=== PATIENT | male | born 1955 | race Caucasian/White ===

== ENCOUNTER 2017-07-12 13:44 | Emergency (ER) | payer MEDICAID ==
[~2017-07-12] VITALS: Ht 167.6 cm; Wt 73.3 kg
[~2017-07-12 13:44] MED LIST: ACET-1757 PO; ASPI-621 PO; ATOR-2 PO; CLOP75TA PO; GLYB1.252 PO; HYDR25TA6 PO; LISI-167 PO; LISI-170 PO; METF500T PO; METF500T4 PO; METO25TA35 PO; NITR0.4T28 SL; OMEP-110 PO; SPIR25TA PO
[2017-07-12] MEDS ORDERED: OXYcodone/APAP 10/325MG TABLET PO ONE (14:30)
[2017-07-12 14:34] LABS: HEMATOCRIT 41.4 % (39.2-51.8); HEMOGLOBIN 14.3 g/dL (13.7-18.0); WHITE BLOOD COUNT 7.2 x10^3/uL (3.4-10)
[2017-07-12] MEDS ORDERED: OXYcodone/APAP 10/325MG TABLET ONE (14:35)
[2017-07-12 14:47] LABS: BLOOD UREA NITROGEN 18 mg/dL (7-18)
[2017-07-12 14:52] LABS: ASPARTATE AMINO TRANSFERASE 18 U/L (15-37)
[2017-07-12] MEDS ORDERED: CLINDAMYCIN 150 MG/ML, 6ML IM ONE (15:30)
[2017-07-12 16:09] VITALS: BP 157/66
== END 2017-07-12 16:13 | disposition home or self-care (01) ==
LOC: ED 14:36
DX: L03.116 Cellulitis of left lower limb (principal); E11.65 Type 2 diabetes mellitus with hyperglycemia; I10 Essential (primary) hypertension; I25.2 Old myocardial infarction; F17.200 Nicotine dependence, unspecified, uncomplicated; Z95.811 Presence of heart assist device
CPT/HCPCS: 36415; 80053; 85025; 96372

== ENCOUNTER 2017-08-08 17:41 | Inpatient (IN) | payer MEDICAID ==
[~2017-08-08] VITALS: Ht 167.6 cm; Wt 85.7 kg
[2017-08-08] MEDS ORDERED: IBUP100T9 PO (18:37)
[2017-08-08] MEDS ORDERED: ONDANSETRON 2MG/ML, 2ML IVPush ONE (19:00)
[2017-08-08] MEDS ORDERED: SODIUM CHLORIDE 0.9% 1,000ML IVBOLUS ONE (19:00)
[2017-08-08] MEDS ORDERED: SODIUM CHLORIDE FLUSH 10ML SYR IVF ONE (19:00)
[2017-08-08] MEDS ORDERED: AMPICILLIN/SULBACTAM 3 GM in SODIUM CHLORIDE 0.9% 100 ML IV ONE (19:00)
[2017-08-08 19:14] LABS: HEMATOCRIT 40.4 % (39.2-51.8); HEMOGLOBIN 13.9 g/dL (13.7-18.0); WHITE BLOOD COUNT 10.3 x10^3/uL (3.4-10)
[2017-08-08] MEDS ORDERED: ONDANSETRON 2MG/ML, 2ML ONE (19:17)
[2017-08-08] MEDS ORDERED: MORPHINE SULFATE 4 MG/ML, 1ML ONE ×2 (19:17→20:22)
[2017-08-08 19:20] LABS: ASPARTATE AMINO TRANSFERASE 38 U/L (15-37); BLOOD UREA NITROGEN 20 mg/dL (7-18)
[2017-08-08] MEDS: MORPHINE SULFATE 4 MG/ML, 1ML IVPush PRN ×2 (19:25→20:25)
[2017-08-08] MEDS ORDERED: DOCUSATE 100 MG CAPSULE PO PRN (21:00)
[2017-08-08] MEDS ORDERED: ONDANSETRON 2MG/ML, 2ML IVPush PRN (21:00)
[2017-08-08] MEDS ORDERED: AMLODIPINE 5 MG TABLET PO ONE (21:00)
[2017-08-08] MEDS ORDERED: NITROGLYCERIN 0.4 MG BOTTLE (25 TABS) SL PRN (21:00)
[2017-08-08] MEDS ORDERED: ACETAMINOPHEN 325 MG TABLET PO PRN (21:00)
[2017-08-08] MEDS ORDERED: VANCOMYCIN PER PHARMACY MC PRN (21:00)
[2017-08-08] MEDS ORDERED: ONDANSETRON ODT 4 MG PO PRN (21:00)
[2017-08-08] MEDS ORDERED: HYDROcodone/APAP 5/325 TABLET PO PRN (21:00)
[2017-08-08] MEDS: LISINOPRIL 20 MG TABLET PO SCH ×2 (22:00→23:37)
[2017-08-08] MEDS ORDERED: VANCOMYCIN 1,400 MG in SODIUM CHLORIDE 0.9% 250 ML IV SCH (22:30)
[2017-08-08] MEDS ORDERED: PHARMACOKINETIC CONSULTATION MC ONE (22:30)
[2017-08-08] MEDS ORDERED: PHARMACOKINETIC MONITORING MC PRN (23:00)
[2017-08-08] MEDS: INSULIN ASPART 100 UNITS/ML, PEN SQ-INSULIN SCH (23:36)
[2017-08-08] MEDS: ATORVASTATIN 20 MG TABLET PO SCH (23:37)
[2017-08-08] MEDS: FAMOTIDINE 20 MG/2 ML IVPush SCH (23:37)
[2017-08-08] MEDS: NS + 20MEQ KCL 1,000 ML IV SCH (23:39)
[2017-08-08] MEDS: morphine SULFATE 10 MG/ML, 1ML IVPush PRN (23:57)
[2017-08-09 01:58] VITALS: BP 160/79
[2017-08-09] MEDS: AMPICILLIN/SULBACTAM 3 GM in SODIUM CHLORIDE 0.9% 100 ML IV SCH ×4 (02:19→19:46)
[2017-08-09] MEDS: ASPIRIN 325 MG TABLET EC PO SCH (06:00)
[2017-08-09 06:27] LABS: HEMATOCRIT 36.9 % (39.2-51.8); HEMOGLOBIN 12.6 g/dL (13.7-18.0); WHITE BLOOD COUNT 7.3 x10^3/uL (3.4-10)
[2017-08-09 06:45] LABS: ASPARTATE AMINO TRANSFERASE 37 U/L (15-37); BLOOD UREA NITROGEN 14 mg/dL (7-18)
[2017-08-09] MEDS: INSULIN ASPART 100 UNITS/ML, PEN SQ-INSULIN SCH ×4 (08:09→21:30)
[2017-08-09] MEDS: morphine SULFATE 10 MG/ML, 1ML IVPush PRN ×5 (08:11→21:30)
[2017-08-09] MEDS: FAMOTIDINE 20 MG/2 ML IVPush SCH ×2 (08:17→21:30)
[2017-08-09 08:30] VITALS: BP 184/80
[2017-08-09 10:20] VITALS: BP 162/78
[2017-08-09 14:36] VITALS: BP 198/83
[2017-08-09] MEDS: hydrALAzine 20 MG/ML, 1ML IVPush PRN (14:41)
[2017-08-09] MEDS: HEPARIN 5,000 UNITS/ML, 1ML SQ SCH ×2 (14:51→21:31)
[2017-08-09] MEDS: NS + 20MEQ KCL 1,000 ML IV SCH (15:17)
[2017-08-09 15:19] VITALS: BP 162/70
[2017-08-09] MEDS: VANCOMYCIN 1,400 MG in SODIUM CHLORIDE 0.9% 250 ML IV SCH (16:56)
[2017-08-09 19:25] VITALS: BP 175/80
[2017-08-09] MEDS: ATORVASTATIN 20 MG TABLET PO SCH (21:00)
[2017-08-10] VITALS (8 sets, daily range): BP systolic 149–202; BP diastolic 58–88
[2017-08-10] MEDS: AMPICILLIN/SULBACTAM 3 GM in SODIUM CHLORIDE 0.9% 100 ML IV SCH ×4 (01:28→20:03)
[2017-08-10 05:40] LABS: HEMATOCRIT 35.2 % (39.2-51.8); HEMOGLOBIN 12.3 g/dL (13.7-18.0); WHITE BLOOD COUNT 7.8 x10^3/uL (3.4-10)
[2017-08-10] MEDS: ASPIRIN 325 MG TABLET EC PO SCH (05:42)
[2017-08-10] MEDS: morphine SULFATE 10 MG/ML, 1ML IVPush PRN ×5 (05:42→21:54)
[2017-08-10] MEDS: HEPARIN 5,000 UNITS/ML, 1ML SQ SCH ×2 (05:42→16:00)
[2017-08-10 05:53] LABS: BLOOD UREA NITROGEN 11 mg/dL (7-18)
[2017-08-10] MEDS: NS + 20MEQ KCL 1,000 ML IV SCH (07:43)
[2017-08-10] MEDS: FAMOTIDINE 20 MG/2 ML IVPush SCH ×2 (07:44→20:03)
[2017-08-10] MEDS: INSULIN ASPART 100 UNITS/ML, PEN SQ-INSULIN SCH ×4 (07:48→20:16)
[2017-08-10] MEDS: LISINOPRIL 20 MG TABLET PO SCH (07:48)
[2017-08-10] MEDS: hydrALAzine 20 MG/ML, 1ML IVPush PRN ×2 (08:02→12:06)
[2017-08-10] MEDS: VANCOMYCIN 1,400 MG in SODIUM CHLORIDE 0.9% 250 ML IV SCH (11:41)
[2017-08-10] MEDS ORDERED: OMNIPAQUE 350 MG/ML, 100ML BOTTLE ONE (11:55)
[2017-08-10] MEDS: ATORVASTATIN 20 MG TABLET PO SCH (20:03)
[2017-08-11] MEDS: HEPARIN 5,000 UNITS/ML, 1ML SQ SCH ×2 (00:30→09:06)
[2017-08-11] MEDS: AMPICILLIN/SULBACTAM 3 GM in SODIUM CHLORIDE 0.9% 100 ML IV SCH ×3 (01:19→15:42)
[2017-08-11 01:45] VITALS: BP 139/58
[2017-08-11] MEDS: ASPIRIN 325 MG TABLET EC PO SCH (04:33)
[2017-08-11] MEDS: NS + 20MEQ KCL 1,000 ML IV SCH ×2 (05:03→17:50)
[2017-08-11] MEDS: VANCOMYCIN 1,400 MG in SODIUM CHLORIDE 0.9% 250 ML IV SCH ×2 (05:58→18:00)
[2017-08-11] MEDS: INSULIN ASPART 100 UNITS/ML, PEN SQ-INSULIN SCH ×4 (07:00→21:58)
[2017-08-11] MEDS: morphine SULFATE 10 MG/ML, 1ML IVPush PRN ×3 (07:06→13:33)
[2017-08-11 07:21] VITALS: BP 193/73
[2017-08-11] MEDS: LISINOPRIL 20 MG TABLET PO SCH (09:06)
[2017-08-11] MEDS: FAMOTIDINE 20 MG/2 ML IVPush SCH ×2 (09:06→23:34)
[2017-08-11 10:23] VITALS: BP 181/73
[2017-08-11] MEDS: ENALAPRILAT 1.25 MG/ML, 2ML IVPush PRN ×2 (10:31→13:33)
[2017-08-11 14:59] VITALS: BP 173/85
[2017-08-11] MEDS ORDERED: MIDAZOLAM 1 MG/ML, 2ML ONE (15:11)
[2017-08-11] MEDS ORDERED: FENTANYL PF 100 MCG/2ML ONE ×3 (15:11→19:53)
[2017-08-11] MEDS ORDERED: ROCURONIUM 10MG/ML,5ML ONE (15:13)
[2017-08-11] MEDS ORDERED: PROPOFOL 10 MG/ML, 20ML ONE (15:13)
[2017-08-11] MEDS ORDERED: PROTAMINE SULFATE 10 MG/ML, 5ML ONE (15:31)
[2017-08-11] MEDS ORDERED: HEPARIN 1,000 UNITS/ML, 10ML ONE ×2 (15:32→18:57)
[2017-08-11] MEDS ORDERED: LIDOCAINE/PF 1%, 30ML ONE (15:32)
[2017-08-11] MEDS ORDERED: BACITRACIN 50,000 UNIT ONE (15:32)
[2017-08-11] MEDS ORDERED: THROMBIN 5,000 UNIT VIAL TP ONE ×2 (15:32→16:12)
[2017-08-11] MEDS ORDERED: MEPERIDINE/PF 25MG/0.5ML IVPush PRN (16:00)
[2017-08-11] MEDS ORDERED: hydrALAzine 20 MG/ML, 1ML IV PRN (16:00)
[2017-08-11] MEDS ORDERED: OXYcodone 5 MG/5 ML ORAL.SOL UDC PO PRN (16:00)
[2017-08-11] MEDS ORDERED: HYDROmorphone 1 MG/ML, 1ML IV PRN (16:00)
[2017-08-11] MEDS ORDERED: LABETALOL 5MG/ML, 20ML IV PRN (16:00)
[2017-08-11] MEDS ORDERED: ACETAMINOPHEN 325 MG TABLET PO PRN ×2 (16:00→22:30)
[2017-08-11] MEDS ORDERED: PROMETHAZINE 25 MG/ML, 1ML IV PRN (16:00)
[2017-08-11] MEDS ORDERED: ONDANSETRON 2MG/ML, 2ML IVPush PRN (16:00)
[2017-08-11] MEDS ORDERED: PHENYLEPHRINE 10 MG/ML ONE ×2 (17:13)
[2017-08-11] MEDS ORDERED: GLYCOPYRROLATE 0.4 MG/2 ML, 2ML ONE ×2 (17:16→17:18)
[2017-08-11] MEDS ORDERED: NEOSTIGMINE 1 MG/ML, 10ML ONE (17:16)
[2017-08-11] MEDS ORDERED: EPHEDRINE 50 MG/ML, 1ML ONE (17:38)
[2017-08-11] MEDS ORDERED: VISIPAQUE 270 MG/ML, 50ML BOTTLE ONE (19:13)
[2017-08-11] MEDS ORDERED: OXYcodone 5 MG/5 ML ORAL.SOL UDC ONE (19:53)
[2017-08-11] MEDS ORDERED: MEPERIDINE/PF 25MG/0.5ML ONE (19:53)
[2017-08-11] MEDS: FENTANYL PF 100 MCG/2ML IV PRN ×2 (20:30→20:45)
[2017-08-11 21:37] VITALS: BP 181/89
[2017-08-11] MEDS ORDERED: ONDANSETRON 2MG/ML, 2ML IV PRN (22:30)
[2017-08-11] MEDS ORDERED: LACTATED RINGERS 1,000 ML IV SCH (22:30)
[2017-08-11] MEDS: ATORVASTATIN 20 MG TABLET PO SCH (23:34)
[2017-08-11] MEDS: hydrALAzine 20 MG/ML, 1ML IVPush PRN (23:35)
[2017-08-11 23:41] VITALS: BP 178/83
[2017-08-11] MEDS: ENOXAPARIN 40 MG/0.4 ML SQ SCH (23:51)
[2017-08-12] MEDS: AMPICILLIN/SULBACTAM 3 GM in SODIUM CHLORIDE 0.9% 100 ML IV SCH ×4 (00:34→18:26)
[2017-08-12 03:57] VITALS: BP 148/70
[2017-08-12] MEDS: ASPIRIN 325 MG TABLET EC PO SCH (06:20)
[2017-08-12 07:15] VITALS: BP 158/85
[2017-08-12] MEDS: VANCOMYCIN 1,400 MG in SODIUM CHLORIDE 0.9% 250 ML IV SCH ×2 (07:23→19:43)
[2017-08-12] MEDS: FAMOTIDINE 20 MG/2 ML IVPush SCH ×2 (08:34→21:49)
[2017-08-12] MEDS: SODIUM CHLORIDE FLUSH 10ML SYR IVF SCH ×2 (08:34→21:50)
[2017-08-12] MEDS: INSULIN ASPART 100 UNITS/ML, PEN SQ-INSULIN SCH ×4 (08:34→22:07)
[2017-08-12] MEDS: LISINOPRIL 20 MG TABLET PO SCH (08:34)
[2017-08-12] MEDS ORDERED: PHENOL THROAT SPRAY BOTTLE MM PRN (09:00)
[2017-08-12 09:37] LABS: HEMATOCRIT 36.1 % (39.2-51.8); HEMOGLOBIN 12.4 g/dL (13.7-18.0); WHITE BLOOD COUNT 9.2 x10^3/uL (3.4-10)
[2017-08-12] MEDS: AMLODIPINE 2.5 MG TABLET PO SCH ×2 (12:33→21:49)
[2017-08-12 14:00] VITALS: BP 167/77
[2017-08-12] MEDS: morphine SULFATE 10 MG/ML, 1ML IV PRN ×2 (16:01→21:49)
[2017-08-12 20:37] VITALS: BP 164/79
[2017-08-12] MEDS: ATORVASTATIN 20 MG TABLET PO SCH (21:49)
[2017-08-12] MEDS: ENOXAPARIN 40 MG/0.4 ML SQ SCH (23:30)
[2017-08-13] MEDS: AMPICILLIN/SULBACTAM 3 GM in SODIUM CHLORIDE 0.9% 100 ML IV SCH ×4 (00:13→18:45)
[2017-08-13] MEDS: TEMAZEPAM 15 MG CAPSULE PO PRN ×2 (01:25→20:44)
[2017-08-13 03:51] VITALS: BP 165/89
[2017-08-13] MEDS: ASPIRIN 325 MG TABLET EC PO SCH (06:05)
[2017-08-13 06:12] LABS: HEMATOCRIT 30.6 % (39.2-51.8); HEMOGLOBIN 10.6 g/dL (13.7-18.0); WHITE BLOOD COUNT 8.8 x10^3/uL (3.4-10)
[2017-08-13] MEDS: INSULIN ASPART 100 UNITS/ML, PEN SQ-INSULIN SCH ×4 (06:13→21:06)
[2017-08-13 06:16] LABS: BLOOD UREA NITROGEN 12 mg/dL (7-18)
[2017-08-13] MEDS: VANCOMYCIN 1,400 MG in SODIUM CHLORIDE 0.9% 250 ML IV SCH ×2 (07:57→19:36)
[2017-08-13] MEDS: AMLODIPINE 2.5 MG TABLET PO SCH (07:58)
[2017-08-13] MEDS: LISINOPRIL 20 MG TABLET PO SCH (07:58)
[2017-08-13] MEDS: SODIUM CHLORIDE FLUSH 10ML SYR IVF SCH ×2 (07:58→20:57)
[2017-08-13 08:10] VITALS: BP 161/67
[2017-08-13] MEDS: FAMOTIDINE 20 MG/2 ML IVPush SCH (08:10)
[2017-08-13] MEDS ORDERED: ACETAMINOPHEN 325 MG TABLET PO PRN (11:00)
[2017-08-13] MEDS: HYDROmorphone 1 MG/ML, 1ML IV PRN ×3 (12:41→20:34)
[2017-08-13 13:50] VITALS: BP 177/82
[2017-08-13 18:54] VITALS: BP 183/85
[2017-08-13] MEDS: hydrALAzine 20 MG/ML, 1ML IVPush PRN (19:28)
[2017-08-13 20:36] VITALS: BP 169/76
[2017-08-13] MEDS: ATORVASTATIN 20 MG TABLET PO SCH (20:56)
[2017-08-13] MEDS: AMLODIPINE 5 MG TABLET PO SCH (20:57)
[2017-08-14] MEDS: ENOXAPARIN 40 MG/0.4 ML SQ SCH (00:11)
[2017-08-14] MEDS: AMPICILLIN/SULBACTAM 3 GM in SODIUM CHLORIDE 0.9% 100 ML IV SCH ×5 (00:14→20:01)
[2017-08-14 00:49] VITALS: BP 145/72
[2017-08-14] MEDS: HYDROmorphone 1 MG/ML, 1ML IV PRN ×6 (01:04→20:31)
[2017-08-14] MEDS: ASPIRIN 325 MG TABLET EC PO SCH (05:23)
[2017-08-14] MEDS: POLYETHYLENE GLYCOL 17 GM PACKET PO PRN (05:26)
[2017-08-14] MEDS: INSULIN ASPART 100 UNITS/ML, PEN SQ-INSULIN SCH ×4 (06:27→20:50)
[2017-08-14 07:11] VITALS: BP 176/83
[2017-08-14] MEDS: VANCOMYCIN 1,400 MG in SODIUM CHLORIDE 0.9% 250 ML IV SCH ×2 (07:42→20:38)
[2017-08-14] MEDS: ENALAPRILAT 1.25 MG/ML, 2ML IVPush PRN (07:48)
[2017-08-14 08:55] LABS: HEMOGLOBIN 11.6 g/dL (13.7-18.0)
[2017-08-14 09:01] LABS: BLOOD UREA NITROGEN 12 mg/dL (7-18)
[2017-08-14] MEDS: LISINOPRIL 20 MG TABLET PO SCH (09:23)
[2017-08-14] MEDS: SODIUM CHLORIDE FLUSH 10ML SYR IVF SCH ×2 (09:23→20:31)
[2017-08-14] MEDS: AMLODIPINE 5 MG TABLET PO SCH ×2 (09:23→20:31)
[2017-08-14 09:24] VITALS: BP 182/75
[2017-08-14] MEDS: hydrALAzine 20 MG/ML, 1ML IVPush PRN ×2 (09:32→18:45)
[2017-08-14 13:46] VITALS: BP 167/85
[2017-08-14] MEDS: OXYcodone/APAP 7.5/325MG TABLET PO PRN ×2 (16:10→21:15)
[2017-08-14] MEDS: metFORMIN 500 MG TABLET PO SCH (17:44)
[2017-08-14] MEDS: ATORVASTATIN 20 MG TABLET PO SCH (20:31)
[2017-08-14 21:17] VITALS: BP 156/83
[2017-08-14] MEDS: TEMAZEPAM 15 MG CAPSULE PO PRN (22:35)
[2017-08-15 00:26] VITALS: BP 143/64
[2017-08-15] MEDS: HYDROmorphone 1 MG/ML, 1ML IV PRN ×5 (00:45→18:43)
[2017-08-15] MEDS: ENOXAPARIN 40 MG/0.4 ML SQ SCH ×2 (00:50→23:28)
[2017-08-15] MEDS: AMPICILLIN/SULBACTAM 3 GM in SODIUM CHLORIDE 0.9% 100 ML IV SCH ×4 (02:10→19:39)
[2017-08-15] MEDS: OXYcodone/APAP 7.5/325MG TABLET PO PRN ×5 (02:12→20:39)
[2017-08-15 05:10] LABS: HEMATOCRIT 32.4 % (39.2-51.8); HEMOGLOBIN 11.1 g/dL (13.7-18.0); WHITE BLOOD COUNT 6.8 x10^3/uL (3.4-10)
[2017-08-15 05:11] LABS: BLOOD UREA NITROGEN 13 mg/dL (7-18)
[2017-08-15] MEDS: METOPROLOL SUCCINATE 25 MG TAB.ER.24H PO SCH (05:26)
[2017-08-15] MEDS: ASPIRIN 325 MG TABLET EC PO SCH (05:26)
[2017-08-15] MEDS: POLYETHYLENE GLYCOL 17 GM PACKET PO PRN (05:38)
[2017-08-15 07:25] VITALS: BP 183/80
[2017-08-15] MEDS: VANCOMYCIN 1,400 MG in SODIUM CHLORIDE 0.9% 250 ML IV SCH ×2 (07:56→20:37)
[2017-08-15] MEDS: LISINOPRIL 20 MG TABLET PO SCH (07:57)
[2017-08-15] MEDS: INSULIN ASPART 100 UNITS/ML, PEN SQ-INSULIN SCH ×4 (07:57→21:01)
[2017-08-15] MEDS: SODIUM CHLORIDE FLUSH 10ML SYR IVF SCH ×2 (07:58→20:40)
[2017-08-15] MEDS: metFORMIN 500 MG TABLET PO SCH ×2 (07:58→16:44)
[2017-08-15] MEDS: AMLODIPINE 5 MG TABLET PO SCH ×2 (07:58→20:39)
[2017-08-15 14:06] VITALS: BP 165/89
[2017-08-15 18:53] VITALS: BP 170/80
[2017-08-15] MEDS ORDERED: ACETAMINOPHEN 325 MG TABLET PO PRN ×2 (20:30)
[2017-08-15] MEDS ORDERED: ONDANSETRON ODT 4 MG PO PRN (20:30)
[2017-08-15] MEDS ORDERED: PHARMACOKINETIC MONITORING MC PRN (20:30)
[2017-08-15] MEDS ORDERED: ONDANSETRON 2MG/ML, 2ML IV PRN (20:30)
[2017-08-15] MEDS ORDERED: VANCOMYCIN PER PHARMACY MC PRN (20:30)
[2017-08-15] MEDS ORDERED: NITROGLYCERIN 0.4 MG BOTTLE (25 TABS) SL PRN (20:30)
[2017-08-15] MEDS: ATORVASTATIN 20 MG TABLET PO SCH (20:39)
[2017-08-15] MEDS: DOCUSATE 100 MG CAPSULE PO PRN (21:00)
[2017-08-16] MEDS: OXYcodone/APAP 7.5/325MG TABLET PO PRN ×5 (00:54→21:07)
[2017-08-16] MEDS: TEMAZEPAM 15 MG CAPSULE PO PRN ×2 (01:43→21:21)
[2017-08-16] MEDS: AMPICILLIN/SULBACTAM 3 GM in SODIUM CHLORIDE 0.9% 100 ML IV SCH ×4 (01:45→21:08)
[2017-08-16 01:51] VITALS: BP 141/74
[2017-08-16] MEDS: ASPIRIN 325 MG TABLET EC PO SCH (06:32)
[2017-08-16] MEDS: METOPROLOL SUCCINATE 25 MG TAB.ER.24H PO SCH (06:32)
[2017-08-16 07:25] VITALS: BP 168/82
[2017-08-16] MEDS: VANCOMYCIN 1,400 MG in SODIUM CHLORIDE 0.9% 250 ML IV SCH ×2 (08:30→19:34)
[2017-08-16] MEDS: LISINOPRIL 20 MG TABLET PO SCH (08:31)
[2017-08-16] MEDS: metFORMIN 500 MG TABLET PO SCH ×2 (08:31→16:01)
[2017-08-16] MEDS: AMLODIPINE 5 MG TABLET PO SCH ×2 (08:31→21:07)
[2017-08-16] MEDS: INSULIN ASPART 100 UNITS/ML, PEN SQ-INSULIN SCH ×4 (08:31→21:21)
[2017-08-16] MEDS: SODIUM CHLORIDE FLUSH 10ML SYR IVF SCH ×2 (10:10→21:00)
[2017-08-16 14:11] VITALS: BP 154/76
[2017-08-16 19:52] VITALS: BP 177/74
[2017-08-16] MEDS: ATORVASTATIN 20 MG TABLET PO SCH (21:07)
[2017-08-16] MEDS: ENOXAPARIN 40 MG/0.4 ML SQ SCH (21:07)
[2017-08-17] MEDS: HYDROmorphone 1 MG/ML, 1ML IV PRN ×2 (00:18→13:13)
[2017-08-17 00:24] VITALS: BP 163/71
[2017-08-17] MEDS: AMPICILLIN/SULBACTAM 3 GM in SODIUM CHLORIDE 0.9% 100 ML IV SCH ×3 (03:03→16:46)
[2017-08-17] MEDS: OXYcodone/APAP 7.5/325MG TABLET PO PRN ×5 (03:03→22:15)
[2017-08-17] MEDS: METOPROLOL SUCCINATE 25 MG TAB.ER.24H PO SCH (06:04)
[2017-08-17] MEDS: ASPIRIN 325 MG TABLET EC PO SCH (06:04)
[2017-08-17 06:05] LABS: HEMATOCRIT 28.7 % (39.2-51.8); HEMOGLOBIN 9.9 g/dL (13.7-18.0); WHITE BLOOD COUNT 7.4 x10^3/uL (3.4-10)
[2017-08-17] MEDS: INSULIN ASPART 100 UNITS/ML, PEN SQ-INSULIN SCH ×4 (06:06→20:35)
[2017-08-17 06:13] LABS: BLOOD UREA NITROGEN 14 mg/dL (7-18)
[2017-08-17] MEDS: VANCOMYCIN 1,400 MG in SODIUM CHLORIDE 0.9% 250 ML IV SCH (07:34)
[2017-08-17] MEDS: metFORMIN 500 MG TABLET PO SCH ×2 (07:34→16:46)
[2017-08-17 08:26] VITALS: BP 171/73
[2017-08-17] MEDS: SODIUM CHLORIDE FLUSH 10ML SYR IVF SCH ×2 (09:00→20:05)
[2017-08-17 11:52] VITALS: BP 183/74
[2017-08-17] MEDS: AMLODIPINE 5 MG TABLET PO SCH ×2 (11:56→20:07)
[2017-08-17] MEDS: LISINOPRIL 20 MG TABLET PO SCH (11:57)
[2017-08-17 13:56] VITALS: BP 162/80
[2017-08-17] MEDS: METOPROLOL TARTRATE 25 MG TABLET PO SCH (18:00)
[2017-08-17 20:00] VITALS: BP 147/68
[2017-08-17] MEDS: ATORVASTATIN 20 MG TABLET PO SCH (20:07)
[2017-08-17] MEDS: DOCUSATE 100 MG CAPSULE PO PRN (20:19)
[2017-08-17] MEDS: VANCOMYCIN 1,100 MG in SODIUM CHLORIDE 0.9% 250 ML IV SCH (20:19)
[2017-08-17] MEDS: ENOXAPARIN 40 MG/0.4 ML SQ SCH (22:15)
[2017-08-17] MEDS: TEMAZEPAM 15 MG CAPSULE PO PRN (22:19)
[2017-08-18] MEDS: AMPICILLIN/SULBACTAM 3 GM in SODIUM CHLORIDE 0.9% 100 ML IV SCH ×3 (00:50→12:20)
[2017-08-18] MEDS: OXYcodone/APAP 7.5/325MG TABLET PO PRN ×4 (02:40→16:18)
[2017-08-18 03:11] VITALS: BP 145/72
[2017-08-18] MEDS: METOPROLOL TARTRATE 25 MG TABLET PO SCH (06:00)
[2017-08-18] MEDS: ASPIRIN 325 MG TABLET EC PO SCH (06:53)
[2017-08-18 08:07] VITALS: BP 171/70
[2017-08-18] MEDS: INSULIN ASPART 100 UNITS/ML, PEN SQ-INSULIN SCH ×3 (08:26→16:56)
[2017-08-18] MEDS: LISINOPRIL 20 MG TABLET PO SCH (08:26)
[2017-08-18] MEDS: metFORMIN 500 MG TABLET PO SCH (08:26)
[2017-08-18] MEDS: AMLODIPINE 5 MG TABLET PO SCH (08:26)
[2017-08-18] MEDS: VANCOMYCIN 1,100 MG in SODIUM CHLORIDE 0.9% 250 ML IV SCH (08:27)
[2017-08-18] MEDS: SODIUM CHLORIDE FLUSH 10ML SYR IVF SCH (08:28)
[2017-08-18] MEDS ORDERED: ATOR20TA9 PO (13:03)
[2017-08-18] MEDS ORDERED: AMLO5TAB2 PO (13:03)
[2017-08-18] MEDS ORDERED: SULF1TAB24 PO ×2 (13:03→13:42)
[2017-08-18] MEDS ORDERED: OXYC1TAB8 PO ×2 (13:03→13:42)
[2017-08-18] MEDS ORDERED: METO25TA35 PO (13:03)
[2017-08-18] MEDS ORDERED: LISI-170 PO (13:45)
[2017-08-18 14:45] VITALS: BP 169/73
[2017-08-19] MEDS ORDERED: ASPIRIN 325 MG TABLET EC PO SCH (06:00)
== END 2017-08-18 17:19 | disposition home health service (06) | DRG 253 ==
LOC: ED 20:13 → EDIP 20:51 → 3NE 21:30 → 4NOR 08-11 18:08
PROVIDERS: ADMIT Internal Medicine; ATTEND Internal Medicine
PROC: 06BQ3ZZ Excision of Left Saphenous Vein, Percutaneous Approach (ICD-10-PCS; 2017-08-11)
PROC: 04CL0ZZ Extirpation of Matter from Left Femoral Artery, Open Approach (ICD-10-PCS; 2017-08-11)
PROC: B41G1ZZ Fluoroscopy of Left Lower Extremity Arteries using Low Osmolar Contrast (ICD-10-PCS; 2017-08-11)
PROC: 0Y6Y0Z0 Detachment at Left 5th Toe, Complete, Open Approach (ICD-10-PCS; principal; 2017-08-11 16:30)
PROC: 041L09N Bypass Left Femoral Artery to Posterior Tibial Artery with Autologous Venous Tissue, Open Approach (ICD-10-PCS; 2017-08-11 16:30)
DX: E11.52 Type 2 diabetes mellitus with diabetic peripheral angiopathy with gangrene (principal); E44.0 Moderate protein-calorie malnutrition; I11.9 Hypertensive heart disease without heart failure; E11.65 Type 2 diabetes mellitus with hyperglycemia; L03.116 Cellulitis of left lower limb; E78.5 Hyperlipidemia, unspecified; F17.210 Nicotine dependence, cigarettes, uncomplicated; I25.10 Atherosclerotic heart disease of native coronary artery without angina pectoris; Z91.14 Patient's other noncompliance with medication regimen; Z91.19 Patient's noncompliance with other medical treatment and regimen; Z95.5 Presence of coronary angioplasty implant and graft; I77.9 Disorder of arteries and arterioles, unspecified
CPT/HCPCS: 36415; 75635; 75710; 80048; 80053; 80202; 82040; 82962; 83036; 83605; 84145; 85025; 85651; 87040; 93005; 93922; 93925; 93970; 96365; 96375; 96376; C1729; J0295; J1170; J1644; J1650; J1815; J2175; J2250; J2270; J2405; J2704; J2710; J2720; J3010; J3370; J3480; J3490; Q9966; Q9967; J0360; J2370; J7030; J7050; S0028

== ENCOUNTER → 2017-08-20 | Outpatient (CLI) | payer MEDICAID ==
[~2017-08-20] MED LIST changes: +AMLO5TAB2 PO; +ATOR20TA9 PO; +IBUP100T9 PO; +OXYC1TAB8 PO; +SULF1TAB24 PO
== END | disposition home or self-care (01) ==
LOC: WOUND 13:16
PROVIDERS: ATTEND Internal Medicine Cardiovascular Disease
DX: E11.621 Type 2 diabetes mellitus with foot ulcer (principal); L97.521 Non-pressure chronic ulcer of other part of left foot limited to breakdown of skin; I25.10 Atherosclerotic heart disease of native coronary artery without angina pectoris; E78.5 Hyperlipidemia, unspecified; I11.9 Hypertensive heart disease without heart failure; F17.210 Nicotine dependence, cigarettes, uncomplicated; E11.52 Type 2 diabetes mellitus with diabetic peripheral angiopathy with gangrene; I25.2 Old myocardial infarction
CPT/HCPCS: 97605

== ENCOUNTER → 2017-08-21 | Outpatient (CLI) | payer MEDICAID | END | disposition home or self-care (01) | LOC: WOUND 14:16 | PROVIDERS: ATTEND Physician Assistant | DX: T81.31XD Disruption of external operation (surgical) wound, not elsewhere classified, subsequent encounter (principal); E11.621 Type 2 diabetes mellitus with foot ulcer; L97.521 Non-pressure chronic ulcer of other part of left foot limited to breakdown of skin; E78.5 Hyperlipidemia, unspecified; I11.9 Hypertensive heart disease without heart failure; I25.2 Old myocardial infarction; E11.52 Type 2 diabetes mellitus with diabetic peripheral angiopathy with gangrene; F17.210 Nicotine dependence, cigarettes, uncomplicated; Y83.8 Other surgical procedures as the cause of abnormal reaction of the patient, or of later complication, without mention of misadventure at the time of the procedure | CPT/HCPCS: 11043; 97605; 99215 ==

== ENCOUNTER → 2017-08-24 | Outpatient (CLI) | payer MEDICAID | END | disposition home or self-care (01) | LOC: WOUND 13:15 | PROVIDERS: ATTEND Internal Medicine | DX: T81.31XD Disruption of external operation (surgical) wound, not elsewhere classified, subsequent encounter (principal); E11.621 Type 2 diabetes mellitus with foot ulcer; L97.521 Non-pressure chronic ulcer of other part of left foot limited to breakdown of skin; E78.5 Hyperlipidemia, unspecified; I11.9 Hypertensive heart disease without heart failure; E11.52 Type 2 diabetes mellitus with diabetic peripheral angiopathy with gangrene; F17.210 Nicotine dependence, cigarettes, uncomplicated; I25.2 Old myocardial infarction; Y83.8 Other surgical procedures as the cause of abnormal reaction of the patient, or of later complication, without mention of misadventure at the time of the procedure | CPT/HCPCS: 97605 ==

== ENCOUNTER → 2017-08-26 | Outpatient (CLI) | payer MEDICAID | END | disposition home or self-care (01) | LOC: WOUND 14:44 | PROVIDERS: ATTEND Family Medicine | DX: T87.89 Other complications of amputation stump (principal); E11.621 Type 2 diabetes mellitus with foot ulcer; L97.521 Non-pressure chronic ulcer of other part of left foot limited to breakdown of skin; I10 Essential (primary) hypertension; E78.5 Hyperlipidemia, unspecified; I25.10 Atherosclerotic heart disease of native coronary artery without angina pectoris; Z87.891 Personal history of nicotine dependence; Y83.5 Amputation of limb(s) as the cause of abnormal reaction of the patient, or of later complication, without mention of misadventure at the time of the procedure | CPT/HCPCS: 11042 ==

== ENCOUNTER → 2017-09-14 | Outpatient (CLI) | payer MEDICAID | END | disposition home or self-care (01) | LOC: WOUND 13:06 | PROVIDERS: ATTEND Internal Medicine | DX: T81.31XD Disruption of external operation (surgical) wound, not elsewhere classified, subsequent encounter (principal); E11.621 Type 2 diabetes mellitus with foot ulcer; L97.521 Non-pressure chronic ulcer of other part of left foot limited to breakdown of skin; I25.10 Atherosclerotic heart disease of native coronary artery without angina pectoris; I10 Essential (primary) hypertension; E78.5 Hyperlipidemia, unspecified; I25.2 Old myocardial infarction; E11.52 Type 2 diabetes mellitus with diabetic peripheral angiopathy with gangrene; Z95.1 Presence of aortocoronary bypass graft; F17.210 Nicotine dependence, cigarettes, uncomplicated; Y83.8 Other surgical procedures as the cause of abnormal reaction of the patient, or of later complication, without mention of misadventure at the time of the procedure | CPT/HCPCS: 11042 ==

== ENCOUNTER → 2017-09-21 | Outpatient (CLI) | payer MEDICAID | END | disposition home or self-care (01) | LOC: WOUND 13:16 | PROVIDERS: ATTEND Internal Medicine | DX: T81.31XD Disruption of external operation (surgical) wound, not elsewhere classified, subsequent encounter (principal); E11.621 Type 2 diabetes mellitus with foot ulcer; L97.521 Non-pressure chronic ulcer of other part of left foot limited to breakdown of skin; I25.10 Atherosclerotic heart disease of native coronary artery without angina pectoris; I10 Essential (primary) hypertension; E78.5 Hyperlipidemia, unspecified; F17.210 Nicotine dependence, cigarettes, uncomplicated; I25.2 Old myocardial infarction; E11.52 Type 2 diabetes mellitus with diabetic peripheral angiopathy with gangrene; Y83.8 Other surgical procedures as the cause of abnormal reaction of the patient, or of later complication, without mention of misadventure at the time of the procedure | CPT/HCPCS: 15275; Q4106 ==

== ENCOUNTER → 2017-09-28 | Outpatient (CLI) | payer MEDICAID | END | disposition home or self-care (01) | LOC: WOUND 13:04 | PROVIDERS: ATTEND Family Medicine | DX: T81.31XD Disruption of external operation (surgical) wound, not elsewhere classified, subsequent encounter (principal); E11.621 Type 2 diabetes mellitus with foot ulcer; L97.521 Non-pressure chronic ulcer of other part of left foot limited to breakdown of skin; E11.52 Type 2 diabetes mellitus with diabetic peripheral angiopathy with gangrene; I11.0 Hypertensive heart disease with heart failure; I25.10 Atherosclerotic heart disease of native coronary artery without angina pectoris; E78.5 Hyperlipidemia, unspecified; I25.2 Old myocardial infarction; E44.0 Moderate protein-calorie malnutrition; F17.210 Nicotine dependence, cigarettes, uncomplicated; Z98.61 Coronary angioplasty status; Z89.9 Acquired absence of limb, unspecified; Z95.1 Presence of aortocoronary bypass graft; Y83.8 Other surgical procedures as the cause of abnormal reaction of the patient, or of later complication, without mention of misadventure at the time of the procedure | CPT/HCPCS: 15275; Q4106 ==

== ENCOUNTER → 2017-10-05 | Outpatient (CLI) | payer MEDICAID | END | disposition home or self-care (01) | LOC: WOUND 13:19 | PROVIDERS: ATTEND Family Medicine | DX: E11.621 Type 2 diabetes mellitus with foot ulcer (principal); L97.521 Non-pressure chronic ulcer of other part of left foot limited to breakdown of skin; I25.10 Atherosclerotic heart disease of native coronary artery without angina pectoris; E78.5 Hyperlipidemia, unspecified; I11.9 Hypertensive heart disease without heart failure; E11.52 Type 2 diabetes mellitus with diabetic peripheral angiopathy with gangrene; I25.2 Old myocardial infarction; F17.210 Nicotine dependence, cigarettes, uncomplicated; Z98.61 Coronary angioplasty status; Z95.1 Presence of aortocoronary bypass graft | CPT/HCPCS: 15275; Q4106 ==

== ENCOUNTER → 2017-10-19 | Outpatient (CLI) | payer MEDICAID | END | disposition home or self-care (01) | LOC: WOUND 13:04 | PROVIDERS: ATTEND Internal Medicine | DX: T87.89 Other complications of amputation stump (principal); E11.621 Type 2 diabetes mellitus with foot ulcer; L97.521 Non-pressure chronic ulcer of other part of left foot limited to breakdown of skin; I25.10 Atherosclerotic heart disease of native coronary artery without angina pectoris; E78.5 Hyperlipidemia, unspecified; I11.9 Hypertensive heart disease without heart failure; I25.2 Old myocardial infarction; E11.52 Type 2 diabetes mellitus with diabetic peripheral angiopathy with gangrene; F17.210 Nicotine dependence, cigarettes, uncomplicated; Z95.1 Presence of aortocoronary bypass graft; Z98.61 Coronary angioplasty status; Y83.5 Amputation of limb(s) as the cause of abnormal reaction of the patient, or of later complication, without mention of misadventure at the time of the procedure | CPT/HCPCS: 15275; Q4106 ==

== ENCOUNTER 2020-02-02 17:31 | Inpatient (IN) | payer MEDICAID ==
[~2020-02-02] VITALS: Ht 167.6 cm; Wt 68.6 kg
[~2020-02-02 17:31] MED LIST changes: -ACET-1757 PO; +ACET-2065 PO; +AMLO-150 PO; -AMLO5TAB2 PO; -ASPI-621 PO; +ASPI81TA45 PO; +ATOR20TA37 PO; -ATOR20TA9 PO; +METF500T17 PO; -METF500T4 PO
[2020-02-02] MEDS ORDERED: ASPIRIN 81 MG TABLET CHEW PO ONE (18:00)
[2020-02-02] MEDS ORDERED: ASPIRIN 81 MG TABLET CHEW ONE (18:00)
[2020-02-02] MEDS ORDERED: SODIUM CHLORIDE FLUSH 10ML SYR IVF ONE (18:00)
[2020-02-02] MEDS: NITROGLYCERIN SINGLE TAB 0.4 MG SL PRN ×3 (18:07→18:23)
--- NOTE | 2020-02-02 18:11 | NUR ---
post nitro x1 cp from 06/11 to 710
[2020-02-02 18:23] LABS: BASOPHILS # (AUTO) 0.07 x10^3/uL (0-0.1); BASOPHILS % (AUTO) 1 % (0-1); EOSINOPHILS # (AUTO) 0.22 x10^3/uL (0-0.4); EOSINOPHILS % (AUTO) 2 % (1-7); LYMPHOCYTES # (AUTO) 0.95 x10^3/uL (1-3.4); LYMPHOCYTES % (AUTO) 9 % (22-44); MD NO; MEAN CORPUSCULAR HGB CONC 33.9 g/dL (33.2-36.2); MEAN CORPUSCULAR VOLUME 94.5 fL (81-97); MEAN PLATELET VOLUME 9.2 fL (7.4-10.4); MONOCYTES # (AUTO) 0.84 x10^3/uL (0.2-0.8); MONOCYTES % (AUTO) 8 % (2-9); NEUTROPHILS % (AUTO) 80 % (42-75); PLATELET COUNT 180 x10^3/uL (130-400); RED BLOOD COUNT 4.03 x10^6/uL (4.38-5.82); RED CELL DISTRIBUTION WIDTH 13.6 % (9.4-14.8)
--- NOTE | 2020-02-02 18:24 | NUR ---
nitro x 2 pain 05/11 to 05/11 no changes. md made aware. third nitro to be admin.
[2020-02-02] MEDS ORDERED: ONDANSETRON 2MG/ML, 2ML IVPush ONE (18:30)
[2020-02-02 18:33] LABS: ALBUMIN 2.4 g/dL (3.4-5.0); ANION GAP 6 mmol/L (5-15); CALCIUM 8.7 mg/dL (8.5-10.1); CHLORIDE 112 mmol/L (98-107); CREATININE 1.19 mg/dL (0.7-1.3)
[2020-02-02] MEDS ORDERED: ONDANSETRON 2MG/ML, 2ML ONE (18:33)
[2020-02-02] MEDS ORDERED: MORPHINE SULFATE 4 MG/ML, 1ML ONE ×2 (18:33→18:58)
[2020-02-02 18:39] LABS: TROPONIN I 0.214 ng/mL (0.000-0.045)
[2020-02-02] MEDS: MORPHINE SULFATE 4 MG/ML, 1ML IVPush PRN ×2 (18:42→19:00)
[2020-02-02] MEDS ORDERED: SODIUM CHLORIDE FLUSH 10ML SYR IVF PRN (19:00)
--- NOTE | 2020-02-02 19:30 | NUR ---
TP RN: PER [facility] AND [facility], NO COVID TESTING PRIOR TO ADMIT
[2020-02-02 20:25] VITALS: BP 195/85
[2020-02-02 21:02] VITALS: BP 184/89
[2020-02-02] MEDS: AMLODIPINE 5 MG TABLET PO SCH (21:03)
[2020-02-02] MEDS: METOPROLOL TARTRATE 25 MG TAB PO SCH (21:03)
[2020-02-02] MEDS: NITROGLYCERIN OINT 2%, 1GM TP SCH (21:03)
[2020-02-02] MEDS: ATORVASTATIN 80 MG TABLET PO SCH (21:03)
[2020-02-02 22:05] VITALS: BP 159/65
[2020-02-02 23:20] LABS: TROPONIN I 0.922 ng/mL (0.000-0.045)
[2020-02-02] MEDS ORDERED: ONDANSETRON 2MG/ML, 2ML IVPush PRN (23:30)
[2020-02-02] MEDS ORDERED: GABAPENTIN 300 MG CAPSULE PO PRN (23:30)
[2020-02-02] MEDS: morphine SULFATE 10 MG/ML, 1ML IV PRN (23:32)
[2020-02-03] MEDS ORDERED: HEPARIN 5,000 UNITS/ML, 1ML IV ONE (00:30)
[2020-02-03] MEDS: HEPARIN 25,000 UNITS/250ML PMX 250 ML IV PRN (00:38)
[2020-02-03 01:26] VITALS: BP 162/66
[2020-02-03 03:19] VITALS: BP 147/78
[2020-02-03] MEDS: NITROGLYCERIN OINT 2%, 1GM TP SCH ×4 (03:21→20:14)
[2020-02-03 05:29] LABS: BASOPHILS # (AUTO) 0.07 x10^3/uL (0-0.1); BASOPHILS % (AUTO) 1 % (0-1); EOSINOPHILS # (AUTO) 0.16 x10^3/uL (0-0.4); EOSINOPHILS % (AUTO) 2 % (1-7); LYMPHOCYTES # (AUTO) 1.05 x10^3/uL (1-3.4); LYMPHOCYTES % (AUTO) 13 % (22-44); MD NO; MEAN CORPUSCULAR HGB CONC 33.5 g/dL (33.2-36.2); MEAN CORPUSCULAR VOLUME 95.5 fL (81-97); MEAN PLATELET VOLUME 9.8 fL (7.4-10.4); MONOCYTES % (AUTO) 9 % (2-9); NEUTROPHILS # (AUTO) 5.91 x10^3/uL (1.8-6.8); NEUTROPHILS % (AUTO) 75 % (42-75); PLATELET COUNT 144 x10^3/uL (130-400); RED BLOOD COUNT 3.63 x10^6/uL (4.38-5.82); RED CELL DISTRIBUTION WIDTH 13.3 % (9.4-14.8)
[2020-02-03 05:36] LABS: ANION GAP 5 mmol/L (5-15); CALCIUM 8.2 mg/dL (8.5-10.1); CHLORIDE 111 mmol/L (98-107)
[2020-02-03 05:42] LABS: CHOL/HDL RATIO 2.9; CHOLESTEROL, TOTAL 157 mg/dL (140-239); CREATININE 1.26 mg/dL (0.7-1.3); HDL CHOL % 35 % (26-37); HDL CHOLESTEROL (DIRECT) 55 mg/dL (40-60); LDL CHOLESTEROL,CALCULATED 76 mg/dL (54-169); LDL/HDL RATIO 1.4 (0.5-3.0); TRIGLYCERIDES 131 mg/dL (50-200); VLDL CHOLESTEROL 26 mg/dL (0-25)
[2020-02-03 06:03] VITALS: BP 144/71
[2020-02-03] MEDS: ASPIRIN 81 MG TABLET EC PO SCH (06:09)
[2020-02-03] MEDS: INSULIN LISPRO 100 UNITS/ML, PEN SQ-INSULIN SCH ×4 (07:37→20:14)
[2020-02-03] MEDS: AMLODIPINE 5 MG TABLET PO SCH ×2 (08:36→20:14)
[2020-02-03] MEDS: ACETAMINOPHEN 325 MG TABLET PO PRN ×2 (08:36→15:06)
[2020-02-03] MEDS: LISINOPRIL 40 MG TABLET PO SCH (08:37)
[2020-02-03] MEDS: METOPROLOL TARTRATE 25 MG TAB PO SCH ×2 (08:37→17:01)
[2020-02-03] MEDS: HEPARIN 5,000 UNITS/ML, 1ML IV PRN ×3 (08:48→22:47)
[2020-02-03] MEDS ORDERED: FENTANYL PF 100 MCG/2ML ONE (09:38)
[2020-02-03] MEDS ORDERED: MIDAZOLAM 1 MG/ML, 5ML ONE (09:38)
[2020-02-03] MEDS ORDERED: VERAPAMIL 2.5 MG/ML, 2ML ONE (10:07)
[2020-02-03] MEDS ORDERED: LIDOCAINE-MPF 1%, 5ML ONE (10:07)
[2020-02-03] MEDS: SODIUM CHLORIDE 0.9% 1,000 ML IV SCH ×2 (10:49→17:18)
[2020-02-03] MEDS ORDERED: SODIUM CHLORIDE 0.9% 1,000 ML IV SCH (11:00)
[2020-02-03 14:24] LABS: TROPONIN I 0.521 ng/mL (0.000-0.045)
[2020-02-03 14:41] VITALS: BP 159/75
[2020-02-03] MEDS: morphine SULFATE 10 MG/ML, 1ML IV PRN (15:07)
[2020-02-03 19:35] VITALS: BP 174/80
[2020-02-03] MEDS: ATORVASTATIN 80 MG TABLET PO SCH (20:14)
[2020-02-03] MEDS: TEMAZEPAM 15 MG CAPSULE PO PRN (20:14)
[2020-02-04 01:46] VITALS: BP 170/72
[2020-02-04] MEDS: ACETAMINOPHEN 325 MG TABLET PO PRN ×3 (01:51→20:23)
[2020-02-04] MEDS: hydrALAzine 20 MG/ML, 1ML IVPush PRN (01:51)
[2020-02-04] MEDS: NITROGLYCERIN OINT 2%, 1GM TP SCH ×4 (03:00→21:00)
[2020-02-04] MEDS: HEPARIN 25,000 UNITS/250ML PMX 250 ML IV PRN (05:03)
[2020-02-04] MEDS: ASPIRIN 81 MG TABLET EC PO SCH (05:04)
[2020-02-04 05:06] VITALS: BP 168/72
[2020-02-04 05:19] LABS: ANION GAP 6 mmol/L (5-15); CALCIUM 8.5 mg/dL (8.5-10.1); CHLORIDE 111 mmol/L (98-107)
[2020-02-04 05:20] LABS: CREATININE 1.13 mg/dL (0.7-1.3)
[2020-02-04 06:40] VITALS: BP 180/82
[2020-02-04] MEDS: INSULIN LISPRO 100 UNITS/ML, PEN SQ-INSULIN SCH ×5 (07:00→21:18)
[2020-02-04 07:50] VITALS: BP 175/75
[2020-02-04] MEDS: LISINOPRIL 40 MG TABLET PO SCH (07:52)
[2020-02-04] MEDS: METOPROLOL TARTRATE 25 MG TAB PO SCH ×2 (07:52→16:44)
[2020-02-04] MEDS: morphine SULFATE 10 MG/ML, 1ML IV PRN (07:52)
[2020-02-04] MEDS: AMLODIPINE 5 MG TABLET PO SCH ×2 (07:52→20:23)
[2020-02-04] MEDS: HYDROCHLOROTHIAZIDE 25 MG TABLET PO SCH (10:29)
[2020-02-04] MEDS: morphine SULFATE 10 MG/ML, 1ML IVPush PRN ×3 (12:32→21:17)
[2020-02-04] MEDS: HEPARIN 5,000 UNITS/ML, 1ML IV PRN ×2 (12:52→20:21)
[2020-02-04 14:30] VITALS: BP 161/81
[2020-02-04 20:09] VITALS: BP 144/72
[2020-02-04] MEDS: ATORVASTATIN 80 MG TABLET PO SCH (20:23)
[2020-02-04] MEDS ORDERED: INSULIN GLARGINE 100 UNITS/ML, PEN SQ-INSULIN SCH (21:00)
[2020-02-04] MEDS: TEMAZEPAM 15 MG CAPSULE PO PRN (23:29)
[2020-02-05 00:56] VITALS: BP 138/74
[2020-02-05] MEDS: HEPARIN 25,000 UNITS/250ML PMX 250 ML IV PRN ×2 (02:34→22:23)
[2020-02-05] MEDS: morphine SULFATE 10 MG/ML, 1ML IVPush PRN ×4 (02:40→22:24)
[2020-02-05] MEDS: NITROGLYCERIN OINT 2%, 1GM TP SCH ×4 (03:00→20:33)
[2020-02-05] MEDS: METOPROLOL TARTRATE 25 MG TAB PO SCH ×2 (06:00→18:00)
[2020-02-05] MEDS: ASPIRIN 81 MG TABLET EC PO SCH (06:21)
[2020-02-05 06:57] VITALS: BP 198/80
[2020-02-05] MEDS: hydrALAzine 20 MG/ML, 1ML IVPush PRN (06:58)
[2020-02-05] MEDS: AMLODIPINE 5 MG TABLET PO SCH ×2 (08:04→20:31)
[2020-02-05] MEDS: HYDROCHLOROTHIAZIDE 25 MG TABLET PO SCH (08:04)
[2020-02-05] MEDS: INSULIN LISPRO 100 UNITS/ML, PEN SQ-INSULIN SCH ×4 (08:05→20:32)
[2020-02-05] MEDS ORDERED: TRAZODONE 50MG TABLET PO PRN (09:00)
[2020-02-05] MEDS ORDERED: LISINOPRIL 40 MG TABLET PO SCH ×2 (09:00→11:00)
[2020-02-05 09:29] VITALS: BP 164/70
[2020-02-05] MEDS ORDERED: ISOSORBIDE MONONITRATE ER 30 MG TABLET PO SCH (09:30)
[2020-02-05 12:37] VITALS: BP 137/70
[2020-02-05] MEDS: BUTALB/APAP/CAFFEINE 50MG/325MG/40MG PO PRN ×2 (15:09→20:31)
[2020-02-05 18:31] VITALS: BP 151/70
[2020-02-05] MEDS: ATORVASTATIN 80 MG TABLET PO SCH (20:31)
[2020-02-05] MEDS: INSULIN GLARGINE 100 UNITS/ML, PEN SQ-INSULIN SCH (20:32)
[2020-02-05 23:21] VITALS: BP 143/73
[2020-02-06] MEDS: NITROGLYCERIN OINT 2%, 1GM TP SCH ×4 (03:00→20:30)
[2020-02-06] MEDS: METOPROLOL TARTRATE 25 MG TAB PO SCH ×2 (06:33→18:12)
[2020-02-06 06:42] VITALS: BP 167/83
[2020-02-06] MEDS: INSULIN LISPRO 100 UNITS/ML, PEN SQ-INSULIN SCH ×4 (07:00→20:40)
[2020-02-06] MEDS: ASPIRIN 81 MG TABLET EC PO SCH (07:03)
[2020-02-06] MEDS: morphine SULFATE 10 MG/ML, 1ML IVPush PRN ×3 (07:07→20:29)
[2020-02-06 08:17] LABS: ANION GAP 7 mmol/L (5-15); CALCIUM 8.7 mg/dL (8.5-10.1); CHLORIDE 109 mmol/L (98-107)
[2020-02-06] MEDS: ACETAMINOPHEN 325 MG TABLET PO PRN (08:21)
[2020-02-06] MEDS: AMLODIPINE 5 MG TABLET PO SCH ×2 (08:21→20:29)
[2020-02-06 08:23] VITALS: BP 187/80
[2020-02-06] MEDS ORDERED: LISINOPRIL 40 MG TABLET PO SCH (09:00)
[2020-02-06] MEDS ORDERED: HYDROCHLOROTHIAZIDE 25 MG TABLET PO SCH (09:00)
[2020-02-06] MEDS ORDERED: SODIUM CHLORIDE 0.9% 1,000 ML IV SCH ×3 (10:00→16:00)
[2020-02-06] MEDS: SODIUM CHLORIDE 0.9% 1,000 ML IV SCH ×2 (10:00→23:20)
[2020-02-06 12:27] VITALS: BP 158/81
[2020-02-06] MEDS ORDERED: TICAGRELOR 90 MG TABLET ONE (13:43)
[2020-02-06] MEDS ORDERED: BIVALIRUDIN 250 MG ONE ×2 (13:43→14:58)
[2020-02-06] MEDS ORDERED: VERAPAMIL 2.5 MG/ML, 2ML ONE (13:44)
[2020-02-06] MEDS ORDERED: PROPOFOL 50 ML ONE ×3 (13:45→15:22)
[2020-02-06] MEDS ORDERED: PHENYLEPHRINE 10 MG/ML ONE (14:19)
[2020-02-06] MEDS ORDERED: GLYCOPYRROLATE 0.2MG/1ML, 5ML ONE (14:27)
[2020-02-06] MEDS ORDERED: PROPOFOL 10 MG/ML, 20ML ONE (15:56)
[2020-02-06] MEDS ORDERED: TICAGRELOR 90 MG TABLET PO STA (16:00)
[2020-02-06] MEDS ORDERED: FENTANYL PF 100 MCG/2ML IV PRN (16:30)
[2020-02-06] MEDS ORDERED: LABETALOL 5MG/ML, 20ML IV PRN (16:30)
[2020-02-06] MEDS ORDERED: hydrALAzine 20 MG/ML, 1ML IV PRN (16:30)
[2020-02-06] MEDS ORDERED: PROMETHAZINE 25 MG/ML, 1ML IV PRN (16:30)
[2020-02-06] MEDS ORDERED: OXYcodone 5 MG/5 ML ORAL.SOL UDC PO PRN (16:30)
[2020-02-06] MEDS ORDERED: ONDANSETRON 2MG/ML, 2ML IV PRN (16:30)
[2020-02-06] MEDS ORDERED: HYDROmorphone 2 MG/ML, 1ML IVPush PRN (16:30)
[2020-02-06] MEDS ORDERED: ACETAMINOPHEN 325 MG TABLET PO PRN (16:30)
[2020-02-06] MEDS ORDERED: EPHEDRINE 50 MG/ML, 1ML IVPush PRN (16:30)
[2020-02-06] MEDS ORDERED: MEPERIDINE/PF 25MG/ML,1ML IVPush PRN (16:30)
[2020-02-06] MEDS ORDERED: HYDROmorphone 1 MG/ML, 1ML INJ ONE (16:43)
[2020-02-06 20:23] VITALS: BP 142/68
[2020-02-06] MEDS: ATORVASTATIN 80 MG TABLET PO SCH (20:29)
[2020-02-06] MEDS: BUTALB/APAP/CAFFEINE 50MG/325MG/40MG PO PRN (20:29)
[2020-02-06] MEDS: INSULIN GLARGINE 100 UNITS/ML, PEN SQ-INSULIN SCH (20:40)
[2020-02-06] MEDS: TICAGRELOR 90 MG TABLET PO SCH (22:50)
[2020-02-06] MEDS ORDERED: NITROGLYCERIN 0.4 MG BOTTLE (25 TABS) SL PRN (23:00)
[2020-02-07] MEDS: ACETAMINOPHEN 325 MG TABLET PO PRN (00:03)
[2020-02-07] MEDS: NITROGLYCERIN OINT 2%, 1GM TP SCH ×2 (03:00→08:52)
[2020-02-07 03:10] VITALS: BP 124/64
[2020-02-07 03:48] LABS: ALANINE AMINOTRANSFERASE 23 U/L (12-78); ALBUMIN 2.1 g/dL (3.4-5.0); ANION GAP 6 mmol/L (5-15); CALCIUM 9.1 mg/dL (8.5-10.1); CHLORIDE 106 mmol/L (98-107); CREATININE 1.32 mg/dL (0.7-1.3)
[2020-02-07 03:50] LABS: ALKALINE PHOSPHATASE 105 U/L (45-117); BILIRUBIN,TOTAL 0.3 mg/dL (0.2-1.0); TOTAL PROTEIN 5.9 g/dL (6.4-8.2)
[2020-02-07] MEDS: METOPROLOL TARTRATE 25 MG TAB PO SCH (06:15)
[2020-02-07] MEDS: ASPIRIN 81 MG TABLET EC PO SCH (06:16)
[2020-02-07] MEDS: INSULIN LISPRO 100 UNITS/ML, PEN SQ-INSULIN SCH ×2 (07:00→11:27)
[2020-02-07 07:34] VITALS: BP 150/69
[2020-02-07] MEDS: AMLODIPINE 5 MG TABLET PO SCH (08:52)
[2020-02-07] MEDS: TICAGRELOR 90 MG TABLET PO SCH (08:52)
[2020-02-07] MEDS ORDERED: ASPIRIN 81 MG TABLET EC PO SCH (09:00)
[2020-02-07] MEDS ORDERED: TICA90TA PO ×2 (10:28)
[2020-02-07] MEDS ORDERED: ACET325T26 PO (10:28)
[2020-02-07] MEDS ORDERED: ATOR-2 PO ×2 (10:28)
[2020-02-07] MEDS ORDERED: HYDR-3343 PO ×2 (10:28)
[2020-02-07] MEDS ORDERED: INSU100I11 SQ-INSULIN (10:28)
[2020-02-07] MEDS ORDERED: INSU100I13 SQ-INSULIN (10:28)
[2020-02-07] MEDS ORDERED: NITR0.4T28 SL (10:28)
[2020-02-07] MEDS ORDERED: ASPI81TA45 PO ×2 (10:28)
[2020-02-11] MEDS ORDERED: PROPOFOL 100 ML IV PRN (16:22)
[2020-02-11] MEDS ORDERED: PHARMACY MAY ADJ FOR RENAL FX MC SCH (16:30)
[2020-02-11] MEDS ORDERED: LIDOCAINE-MPF 1%, 2ML ENDO PRN (16:30)
[2020-02-11] MEDS ORDERED: FENTANYL PF 100 MCG/2ML IVPush PRN (16:30)
[2020-02-11] MEDS ORDERED: LACTULOSE 20 GM/30 ML UDC NG PRN (16:30)
[2020-02-11] MEDS ORDERED: FAMOTIDINE 20 MG/2 ML IV SCH (16:30)
== END 2020-02-07 12:03 | disposition home or self-care (01) | DRG 190 ==
LOC: ED 18:45 → EDIP 19:15 → 5SO 20:05
PROVIDERS: ADMIT Family Medicine; ATTEND Internal Medicine
PROC: 4A023N7 Measurement of Cardiac Sampling and Pressure, Left Heart, Percutaneous Approach (ICD-10-PCS; principal; 2020-02-03)
PROC: B215YZZ Fluoroscopy of Left Heart using Other Contrast (ICD-10-PCS; 2020-02-03)
PROC: B211YZZ Fluoroscopy of Multiple Coronary Arteries using Other Contrast (ICD-10-PCS; 2020-02-03)
DX: I21.4 Non-ST elevation (NSTEMI) myocardial infarction (principal); N17.0 Acute kidney failure with tubular necrosis; I50.43 Acute on chronic combined systolic (congestive) and diastolic (congestive) heart failure; E44.0 Moderate protein-calorie malnutrition; E78.00 Pure hypercholesterolemia, unspecified; J44.9 Chronic obstructive pulmonary disease, unspecified; I25.119 Atherosclerotic heart disease of native coronary artery with unspecified angina pectoris; I11.0 Hypertensive heart disease with heart failure; E78.5 Hyperlipidemia, unspecified; E11.40 Type 2 diabetes mellitus with diabetic neuropathy, unspecified; E11.51 Type 2 diabetes mellitus with diabetic peripheral angiopathy without gangrene; E11.65 Type 2 diabetes mellitus with hyperglycemia; I25.2 Old myocardial infarction; Z87.891 Personal history of nicotine dependence; Z95.5 Presence of coronary angioplasty implant and graft; Z79.84 Long term (current) use of oral hypoglycemic drugs; Z91.19 Patient's noncompliance with other medical treatment and regimen
CPT/HCPCS: 36415; 70450; 71045; 80048; 80053; 80061; 82040; 82962; 83036; 83880; 84478; 84484; 85014; 85018; 85025; 85520; 93005; 93306; 93308; 93321; 93325; 93458; 93880; 93970; 96374; 96375; 99156; C1769; C1894; C9600; C9601; G0378; J0583; J1644; J2250; J2405; J2704; J3010; C1725; C1874; C1887; J0360; J1815; J2270; J2370; J7030; Q9967

== ENCOUNTER 2020-02-11 13:36 | Inpatient (IN) | payer MEDICAID ==
[~2020-02-11] VITALS: Ht 170.2 cm; Wt 76.2 kg
[~2020-02-11 13:36] MED LIST changes: +ACET325T26 PO; +HYDR-3343 PO; +INSU100I11 SQ-INSULIN; +INSU100I13 SQ-INSULIN; +TICA90TA PO
--- NOTE | 2020-02-11 13:52 | NUR ---
1336 CODE CARDIAC ALERT. PT CAME IN BY AMBULANCE DUE TO STEMI. THIS IS A 64 YEAR OLD MALE WHO HAD 2 STENTS PLACED ON 02/04/2020. TOOK 325 ASA IN AMBULANCE, AND ONE NTG. PT STATES PAIN IS 7/10. PT PLACED ON CARDIAC PADS, INDUSTRIAL ROOFER HELPER AT 47, CONTINOUS SP02 AND CYCLE VS.
[2020-02-11] MEDS ORDERED: ONDANSETRON 2MG/ML, 2ML ONE (13:56)
[2020-02-11] MEDS ORDERED: MORPHINE SULFATE 4 MG/ML, 1ML ONE ×2 (13:56→14:16)
[2020-02-11] MEDS: MORPHINE SULFATE 4 MG/ML, 1ML IVPush PRN ×2 (13:58→14:17)
[2020-02-11] MEDS ORDERED: ONDANSETRON 2MG/ML, 2ML IVPush ONE (14:00)
[2020-02-11] MEDS ORDERED: PLEASE ENTER HEIGHT AND WEIGHT MC SCH (14:00)
[2020-02-11] MEDS ORDERED: VECURONIUM 10 MG ONE (14:00)
[2020-02-11] MEDS ORDERED: ETOMIDATE 20 MG/10 ML ONE (14:00)
[2020-02-11] MEDS ORDERED: HEPARIN 5,000 UNITS/ML, 1ML IV ONE (14:00)
[2020-02-11] MEDS ORDERED: SODIUM CHLORIDE 0.9% PF 10ML ONE (14:00)
[2020-02-11] MEDS ORDERED: HEPARIN 25,000 UNITS/250ML PMX 250 ML IV PRN (14:00)
[2020-02-11] MEDS ORDERED: HEPARIN 5,000 UNITS/ML, 1ML IV PRN (14:00)
--- NOTE | 2020-02-11 14:01 | NUR ---
MEDICATED WITH MORPHINE FOR PAIN
--- NOTE | 2020-02-11 14:03 | NUR ---
BS [address] IN ROUTE, DR. ALVA AT BS
[2020-02-11 14:06] LABS: BASOPHILS # (AUTO) 0.07 x10^3/uL (0-0.1); BASOPHILS % (AUTO) 1 % (0-1); EOSINOPHILS % (AUTO) 2 % (1-7); INTERNATIONAL NORMALIZED RATIO 0.92 (0.93-1.1); LYMPHOCYTES # (AUTO) 2.35 x10^3/uL (1-3.4); LYMPHOCYTES % (AUTO) 24 % (22-44); MD NO; MEAN CORPUSCULAR HEMOGLOBIN 31.9 pg (27.5-34.5); MEAN CORPUSCULAR HGB CONC 33.3 g/dL (33.2-36.2); MEAN CORPUSCULAR VOLUME 95.7 fL (81-97); MEAN PLATELET VOLUME 9.1 fL (7.4-10.4); MONOCYTES # (AUTO) 0.87 x10^3/uL (0.2-0.8); MONOCYTES % (AUTO) 9 % (2-9); NEUTROPHILS # (AUTO) 6.27 x10^3/uL (1.8-6.8); NEUTROPHILS % (AUTO) 64 % (42-75); PLATELET COUNT 275 x10^3/uL (130-400); PROTHROMBIN TIME 9.7 Seconds (9.6-11.5); RED BLOOD COUNT 3.75 x10^6/uL (4.38-5.82); RED CELL DISTRIBUTION WIDTH 13.1 % (9.4-14.8)
--- NOTE | 2020-02-11 14:08 | NUR ---
DR. KELLY AT BS, AWAITING YOUTH CORRECTIONS OFFICER
--- NOTE | 2020-02-11 14:12 | NUR ---
sharepoint net developer note: Spoke with Lara in [facility] course lab[facility]. She reports that she is the only one in [facility] at this time and will call when they are ready.
[2020-02-11] MEDS ORDERED: MIDAZOLAM 1 MG/ML, 5ML ONE (14:15)
[2020-02-11] MEDS ORDERED: VERAPAMIL 2.5 MG/ML, 2ML ONE (14:15)
[2020-02-11] MEDS ORDERED: FENTANYL PF 100 MCG/2ML ONE (14:15)
[2020-02-11] MEDS ORDERED: TICAGRELOR 90 MG TABLET ONE (14:15)
[2020-02-11] MEDS ORDERED: HEPARIN 1,000 UNITS/ML, 10ML ONE (14:15)
[2020-02-11] MEDS ORDERED: BIVALIRUDIN 250 MG ONE ×2 (14:15→15:35)
[2020-02-11] MEDS ORDERED: LIDOCAINE 2%, 20ML ONE (14:15)
--- NOTE | 2020-02-11 14:17 | NUR ---
MEDICATED WITH MORPHINE, TO CONDOMINIUM PROPERTY MANAGER RECEIVED CALL TO SEND
--- NOTE | 2020-02-11 14:17 | NUR ---
aircraft sheet metal mechanic note: Lara in agriculture laborer called ER, states they are ready for pt. Primary RN made aware.
[2020-02-11] MEDS ORDERED: SODIUM CHLORIDE FLUSH 10ML SYR IVF PRN (14:30)
[2020-02-11] MEDS ORDERED: EPINEPHRINE 1 MG/ML, 1ML ONE ×2 (14:44→16:40)
[2020-02-11] MEDS ORDERED: PHENYLEPHRINE 10 MG/ML ONE ×2 (14:44→16:40)
[2020-02-11] MEDS ORDERED: TIROFIBAN HCL MONOHYDRATE 15 ML ONE (14:52)
[2020-02-11] MEDS ORDERED: AMIODARONE 50 MG/ML, 3ML ONE (15:00)
[2020-02-11] MEDS ORDERED: SODIUM BICARB 8.4%, 50ML SYRINGE ONE (15:00)
[2020-02-11] MEDS ORDERED: EPINEPHRINE SYRINGE 0.1 MG/ML, 10ML ONE (15:00)
[2020-02-11] MEDS ORDERED: BISACODYL 10 MG SUPP PR PRN (15:30)
[2020-02-11] MEDS ORDERED: POLYETHYLENE GLYCOL 17 GM PACKET PO PRN (15:30)
[2020-02-11] MEDS ORDERED: LABETALOL 5MG/ML, 20ML IVPush PRN (15:30)
[2020-02-11] MEDS ORDERED: ENALAPRILAT 1.25 MG/ML, 1ML IVPush PRN (15:30)
[2020-02-11] MEDS ORDERED: morphine SULFATE 10 MG/ML, 1ML IVPush PRN (15:30)
[2020-02-11] MEDS ORDERED: INSULIN LISPRO 100 UNITS/ML, PEN SQ-INSULIN SCH (16:00)
[2020-02-11] MEDS ORDERED: PROPOFOL 100 ML IV PRN ×2 (16:27→17:12)
[2020-02-11] MEDS ORDERED: TIROFIBAN IV SCH (16:30)
[2020-02-11] MEDS ORDERED: FILTER 0.22 MICRON IV ONE (16:30)
[2020-02-11] MEDS ORDERED: SODIUM PHOSPHATE 20 MMOL in SODIUM CHLORIDE 0.9% 250 ML IVPB PRN (17:12)
[2020-02-11] MEDS ORDERED: VECURONIUM 10 MG IVPush PRN (17:30)
[2020-02-11] MEDS: KSCALE TO 4.0 IV SCH ×2 (17:30→21:30)
[2020-02-11] MEDS ORDERED: FENTANYL PF 1,000 MCG in SODIUM CHLORIDE 0.9% 80 ML IV PRN (17:30)
[2020-02-11] MEDS ORDERED: ARTIFICIAL TEARS OINT 3.5 GM EACHEYE SCH (17:30)
[2020-02-11] MEDS ORDERED: FAMOTIDINE 20 MG/2 ML IVPush SCH (17:30)
[2020-02-11] MEDS ORDERED: MAGNESIUM SULFATE 1 GM in DEXTROSE 5% 100 ML IVPB PRN (17:30)
[2020-02-11] MEDS ORDERED: CALCIUM CHLORIDE 13.6 MEQ in SODIUM CHLORIDE 0.9% 100 ML IVPB PRN (17:30)
[2020-02-11] MEDS ORDERED: BUSPIRONE 10 MG TABLET NG SCH (17:30)
[2020-02-11] MEDS ORDERED: ENALAPRILAT 1.25 MG/ML, 2ML ONE ×2 (17:37→18:14)
[2020-02-11] MEDS: BIVALIRUDIN 500 MG in DEXTROSE 5% 100 ML IV SCH ×2 (18:23→22:36)
[2020-02-11] MEDS ORDERED: ENALAPRILAT 1.25 MG/ML, 2ML IV ONE (18:30)
[2020-02-11 18:43] LABS: TROPONIN I > 200.000 ng/mL (0.000-0.045)
[2020-02-11] MEDS ORDERED: ATROPINE SYRINGE 0.1 MG/ML, 10ML ONE (18:43)
[2020-02-11] MEDS: REGULAR INSULIN 100 UNITS in SODIUM CHLORIDE 0.9% 99 ML IV PRN (19:11)
[2020-02-11] MEDS: SODIUM CHLORIDE 0.9% 1,000 ML IV SCH (19:32)
[2020-02-11] MEDS: EPINEPHRINE 5 MG in SODIUM CHLORIDE 0.9% 245 ML IV PRN (21:30)
[2020-02-11] MEDS: FAMOTIDINE 20 MG/2 ML IVPush SCH (21:40)
[2020-02-11] MEDS: TICAGRELOR 90 MG TABLET PO SCH (21:40)
[2020-02-11] MEDS: ATORVASTATIN 80 MG TABLET PO SCH (21:40)
[2020-02-11] MEDS: NOREPINEPHRINE 8 MG in SODIUM CHLORIDE 0.9% 242 ML IV PRN (23:15)
[2020-02-11] MEDS: FILTER 0.22 MICRON IV PRN (23:59)
[2020-02-12 01:40] LABS: TROPONIN I > 200.000 ng/mL (0.000-0.045)
[2020-02-12] MEDS: EPINEPHRINE 5 MG in SODIUM CHLORIDE 0.9% 245 ML IV PRN ×3 (02:59→09:08)
[2020-02-12] MEDS: BIVALIRUDIN 500 MG in DEXTROSE 5% 100 ML IV SCH (03:07)
[2020-02-12] MEDS: REGULAR INSULIN 100 UNITS in SODIUM CHLORIDE 0.9% 99 ML IV PRN (03:34)
[2020-02-12 04:18] LABS: ALANINE AMINOTRANSFERASE 190 U/L (12-78); ALBUMIN 1.9 g/dL (3.4-5.0); ANION GAP 10 mmol/L (5-15); BASOPHILS # (AUTO) 0.02 x10^3/uL (0-0.1); BASOPHILS % (AUTO) 0 % (0-1); CALCIUM 8.9 mg/dL (8.5-10.1); CHLORIDE 115 mmol/L (98-107); CREATININE 2.19 mg/dL (0.7-1.3); EOSINOPHILS # (AUTO) 0.08 x10^3/uL (0-0.4); EOSINOPHILS % (AUTO) 1 % (1-7); LYMPHOCYTES % (AUTO) 7 % (22-44); MD NO; MEAN CORPUSCULAR HEMOGLOBIN 32.4 pg (27.5-34.5); MEAN CORPUSCULAR VOLUME 95.5 fL (81-97); MEAN PLATELET VOLUME 8.9 fL (7.4-10.4); MONOCYTES # (AUTO) 0.87 x10^3/uL (0.2-0.8); MONOCYTES % (AUTO) 7 % (2-9); NEUTROPHILS # (AUTO) 11.33 x10^3/uL (1.8-6.8); NEUTROPHILS % (AUTO) 86 % (42-75); PLATELET COUNT 303 x10^3/uL (130-400); RED BLOOD COUNT 3.12 x10^6/uL (4.38-5.82); RED CELL DISTRIBUTION WIDTH 13.4 % (9.4-14.8)
[2020-02-12 04:20] LABS: ALKALINE PHOSPHATASE 119 U/L (45-117); BILIRUBIN,TOTAL 0.1 mg/dL (0.2-1.0); TOTAL PROTEIN 5.1 g/dL (6.4-8.2)
[2020-02-12 04:35] VITALS: BP 95/43
[2020-02-12] MEDS: INSULIN LISPRO 100 UNITS/ML, PEN SQ-INSULIN SCH ×4 (07:00→21:00)
[2020-02-12] MEDS: ACETAMINOPHEN 325 MG TABLET PO PRN ×2 (07:47→16:16)
[2020-02-12] MEDS: TICAGRELOR 90 MG TABLET PO SCH ×2 (07:47→20:46)
[2020-02-12] MEDS: FAMOTIDINE 20 MG/2 ML IVPush SCH (07:48)
[2020-02-12] MEDS: SENNA/DOCUSATE TABLET PO SCH (07:48)
[2020-02-12] MEDS ORDERED: ASPIRIN 81 MG TABLET EC PO SCH (09:00)
[2020-02-12] MEDS: INSULIN GLARGINE 100 UNITS/ML, PEN SQ-INSULIN SCH ×2 (09:00→21:00)
[2020-02-12] MEDS: NOREPINEPHRINE 8 MG in SODIUM CHLORIDE 0.9% 242 ML IV PRN ×2 (09:09→18:40)
[2020-02-12] MEDS: SODIUM CHLORIDE 0.9% 1,000 ML IV SCH ×2 (09:21→19:21)
[2020-02-12] MEDS ORDERED: ASPIRIN 81 MG TABLET CHEW ONE (09:32)
[2020-02-12] MEDS: ASPIRIN 81 MG TABLET CHEW PO SCH (09:34)
[2020-02-12] MEDS: OXYcodone IR 5MG TABLET PO PRN ×2 (11:37→22:27)
[2020-02-12] MEDS: AMIODARONE 450 MG in DEXTROSE 5% 241 ML IV SCH ×2 (13:20)
[2020-02-12] MEDS: ONDANSETRON 2MG/ML, 2ML IVPush PRN ×2 (13:20→19:18)
[2020-02-12] MEDS: ATORVASTATIN 80 MG TABLET PO SCH (20:46)
[2020-02-12] MEDS: LORazepam 2 MG/ML, 1ML IVPush PRN (20:46)
[2020-02-12] MEDS ORDERED: morphine SULFATE 10 MG/ML, 1ML IVPush ONE (21:00)
[2020-02-12] MEDS ORDERED: INSULIN GLARGINE 100 UNITS/ML, PEN SQ-INSULIN ONE (21:00)
[2020-02-13] MEDS: LORazepam 2 MG/ML, 1ML IVPush PRN (00:48)
[2020-02-13] MEDS: FILTER 0.22 MICRON IV PRN (02:20)
[2020-02-13] MEDS: AMIODARONE 450 MG in DEXTROSE 5% 241 ML IV SCH (02:20)
[2020-02-13] MEDS: NOREPINEPHRINE 8 MG in SODIUM CHLORIDE 0.9% 242 ML IV PRN (02:22)
[2020-02-13 03:15] LABS: BASOPHILS # (AUTO) 0.05 x10^3/uL (0-0.1); BASOPHILS % (AUTO) 0 % (0-1); EOSINOPHILS # (AUTO) 0.02 x10^3/uL (0-0.4); EOSINOPHILS % (AUTO) 0 % (1-7); LYMPHOCYTES # (AUTO) 1.41 x10^3/uL (1-3.4); LYMPHOCYTES % (AUTO) 10 % (22-44); MD NO; MEAN CORPUSCULAR HEMOGLOBIN 31.5 pg (27.5-34.5); MEAN CORPUSCULAR HGB CONC 33.2 g/dL (33.2-36.2); MEAN PLATELET VOLUME 8.9 fL (7.4-10.4); MONOCYTES # (AUTO) 1.17 x10^3/uL (0.2-0.8); MONOCYTES % (AUTO) 8 % (2-9); NEUTROPHILS # (AUTO) 11.27 x10^3/uL (1.8-6.8); NEUTROPHILS % (AUTO) 81 % (42-75); PLATELET COUNT 237 x10^3/uL (130-400); RED BLOOD COUNT 2.61 x10^6/uL (4.38-5.82); RED CELL DISTRIBUTION WIDTH 13.7 % (9.4-14.8)
[2020-02-13 03:23] LABS: ANION GAP 9 mmol/L (5-15); CALCIUM 8.1 mg/dL (8.5-10.1); CHLORIDE 113 mmol/L (98-107); CREATININE 2.55 mg/dL (0.7-1.3)
[2020-02-13] MEDS: OXYcodone IR 5MG TABLET PO PRN ×4 (03:31→20:35)
[2020-02-13 03:46] VITALS: BP 121/65
[2020-02-13] MEDS: SODIUM CHLORIDE 0.9% 1,000 ML IV SCH ×3 (05:14→22:09)
[2020-02-13] MEDS: INSULIN LISPRO 100 UNITS/ML, PEN SQ-INSULIN SCH ×4 (06:22→20:38)
[2020-02-13] MEDS: INSULIN GLARGINE 100 UNITS/ML, PEN SQ-INSULIN SCH ×2 (09:00→20:39)
[2020-02-13] MEDS ORDERED: FAMOTIDINE 20 MG/2 ML IVPush SCH (09:00)
[2020-02-13] MEDS ORDERED: OXYcodone 5 MG/5 ML ORAL.SOL UDC ONE (09:24)
[2020-02-13] MEDS: SENNA/DOCUSATE TABLET PO SCH (09:25)
[2020-02-13] MEDS: TICAGRELOR 90 MG TABLET PO SCH ×2 (09:25→20:20)
[2020-02-13] MEDS: ASPIRIN 81 MG TABLET CHEW PO SCH (09:25)
[2020-02-13] MEDS: CARVEDILOL 3.125 MG TABLET PO SCH (18:11)
[2020-02-13 19:50] VITALS: BP 137/81
[2020-02-13] MEDS: ATORVASTATIN 80 MG TABLET PO SCH (20:20)
[2020-02-14 01:08] VITALS: BP 124/72
[2020-02-14 04:56] LABS: BASOPHILS # (AUTO) 0.03 x10^3/uL (0-0.1); BASOPHILS % (AUTO) 0 % (0-1); EOSINOPHILS # (AUTO) 0.17 x10^3/uL (0-0.4); EOSINOPHILS % (AUTO) 1 % (1-7); LYMPHOCYTES % (AUTO) 7 % (22-44); MD NO; MEAN CORPUSCULAR HEMOGLOBIN 31.7 pg (27.5-34.5); MEAN CORPUSCULAR HGB CONC 33.5 g/dL (33.2-36.2); MEAN CORPUSCULAR VOLUME 94.7 fL (81-97); MEAN PLATELET VOLUME 9.1 fL (7.4-10.4); MONOCYTES # (AUTO) 0.87 x10^3/uL (0.2-0.8); MONOCYTES % (AUTO) 7 % (2-9); NEUTROPHILS # (AUTO) 11.29 x10^3/uL (1.8-6.8); NEUTROPHILS % (AUTO) 85 % (42-75); PLATELET COUNT 209 x10^3/uL (130-400); RED BLOOD COUNT 2.52 x10^6/uL (4.38-5.82); RED CELL DISTRIBUTION WIDTH 13.4 % (9.4-14.8)
[2020-02-14] MEDS: CARVEDILOL 3.125 MG TABLET PO SCH ×2 (05:19→17:38)
[2020-02-14] MEDS: INSULIN LISPRO 100 UNITS/ML, PEN SQ-INSULIN SCH ×4 (07:00→20:08)
[2020-02-14] MEDS: SODIUM CHLORIDE 0.9% 1,000 ML IV SCH (07:09)
[2020-02-14 07:22] VITALS: BP 117/72
[2020-02-14] MEDS: SENNA/DOCUSATE TABLET PO SCH (08:23)
[2020-02-14] MEDS: FAMOTIDINE 20 MG TABLET PO SCH (08:23)
[2020-02-14] MEDS: TICAGRELOR 90 MG TABLET PO SCH ×2 (08:23→20:08)
[2020-02-14] MEDS: ASPIRIN 81 MG TABLET CHEW PO SCH (08:24)
[2020-02-14] MEDS: INSULIN GLARGINE 100 UNITS/ML, PEN SQ-INSULIN SCH ×2 (08:24→20:08)
[2020-02-14] MEDS: AZITHROMYCIN 500 MG in SODIUM CHLORIDE 0.9% 250 ML IV SCH (09:51)
[2020-02-14] MEDS: CEFTRIAXONE PMX 1GM/50ML 50 ML IV SCH (10:58)
[2020-02-14 11:23] LABS: ANION GAP 7 mmol/L (5-15); CALCIUM 8.1 mg/dL (8.5-10.1); CHLORIDE 116 mmol/L (98-107); CREATININE 1.98 mg/dL (0.7-1.3)
[2020-02-14 12:28] VITALS: BP 133/76
[2020-02-14] MEDS: FLUTICASONE NASAL SPRAY 16GM NAS SCH (20:08)
[2020-02-14] MEDS: ATORVASTATIN 80 MG TABLET PO SCH (20:08)
[2020-02-14] MEDS: OXYcodone IR 5MG TABLET PO PRN (20:17)
[2020-02-14 20:40] VITALS: BP 147/74
[2020-02-15 00:24] VITALS: BP 136/77
[2020-02-15 05:17] LABS: BASOPHILS # (AUTO) 0.03 x10^3/uL (0-0.1); BASOPHILS % (AUTO) 0 % (0-1); EOSINOPHILS # (AUTO) 0.09 x10^3/uL (0-0.4); EOSINOPHILS % (AUTO) 1 % (1-7); LYMPHOCYTES # (AUTO) 0.53 x10^3/uL (1-3.4); LYMPHOCYTES % (AUTO) 4 % (22-44); MD NO; MEAN CORPUSCULAR HEMOGLOBIN 32.2 pg (27.5-34.5); MEAN CORPUSCULAR HGB CONC 33.8 g/dL (33.2-36.2); MEAN CORPUSCULAR VOLUME 95.2 fL (81-97); MEAN PLATELET VOLUME 9.1 fL (7.4-10.4); MONOCYTES # (AUTO) 0.66 x10^3/uL (0.2-0.8); MONOCYTES % (AUTO) 5 % (2-9); NEUTROPHILS # (AUTO) 11.71 x10^3/uL (1.8-6.8); NEUTROPHILS % (AUTO) 90 % (42-75); PLATELET COUNT 257 x10^3/uL (130-400); RED BLOOD COUNT 2.79 x10^6/uL (4.38-5.82); RED CELL DISTRIBUTION WIDTH 13.6 % (9.4-14.8)
[2020-02-15] MEDS: CARVEDILOL 3.125 MG TABLET PO SCH ×2 (06:09→16:58)
[2020-02-15 06:28] LABS: ANION GAP 10 mmol/L (5-15); CALCIUM 8.7 mg/dL (8.5-10.1); CHLORIDE 112 mmol/L (98-107); CREATININE 1.83 mg/dL (0.7-1.3)
[2020-02-15] MEDS: INSULIN LISPRO 100 UNITS/ML, PEN SQ-INSULIN SCH ×4 (07:00→21:24)
[2020-02-15 07:02] VITALS: BP 130/77
[2020-02-15 07:09] VITALS: BP 146/68
[2020-02-15 08:06] VITALS: BP 130/70
[2020-02-15] MEDS: AZITHROMYCIN 500 MG in SODIUM CHLORIDE 0.9% 250 ML IV SCH (08:53)
[2020-02-15] MEDS: SENNA/DOCUSATE TABLET PO SCH (08:57)
[2020-02-15] MEDS: FAMOTIDINE 20 MG TABLET PO SCH (08:58)
[2020-02-15] MEDS: TICAGRELOR 90 MG TABLET PO SCH ×2 (08:58→21:23)
[2020-02-15] MEDS: FLUTICASONE NASAL SPRAY 16GM NAS SCH ×2 (08:58→21:00)
[2020-02-15] MEDS: ASPIRIN 81 MG TABLET CHEW PO SCH (08:58)
[2020-02-15] MEDS ORDERED: LISINOPRIL 5 MG TABLET ONE (09:00)
[2020-02-15] MEDS: LISINOPRIL 5 MG TABLET PO SCH (09:01)
[2020-02-15] MEDS: OXYcodone IR 5MG TABLET PO PRN ×2 (09:10→16:59)
[2020-02-15] MEDS: CEFTRIAXONE PMX 1GM/50ML 50 ML IV SCH (10:11)
[2020-02-15 12:59] VITALS: BP 119/67
[2020-02-15] MEDS: ACETAMINOPHEN 325 MG TABLET PO PRN (15:25)
[2020-02-15 19:28] VITALS: BP 126/71
[2020-02-15] MEDS: ATORVASTATIN 80 MG TABLET PO SCH (21:23)
[2020-02-16 01:32] VITALS: BP 138/72
[2020-02-16] MEDS: CARVEDILOL 3.125 MG TABLET PO SCH ×3 (05:21→17:08)
[2020-02-16] MEDS: INSULIN LISPRO 100 UNITS/ML, PEN SQ-INSULIN SCH ×4 (07:00→20:39)
[2020-02-16 07:37] VITALS: BP 139/78
[2020-02-16 07:42] LABS: BASOPHILS # (AUTO) 0.05 x10^3/uL (0-0.1); BASOPHILS % (AUTO) 1 % (0-1); EOSINOPHILS # (AUTO) 0.17 x10^3/uL (0-0.4); EOSINOPHILS % (AUTO) 2 % (1-7); LYMPHOCYTES # (AUTO) 0.79 x10^3/uL (1-3.4); LYMPHOCYTES % (AUTO) 7 % (22-44); MD NO; MEAN CORPUSCULAR HEMOGLOBIN 31.7 pg (27.5-34.5); MEAN CORPUSCULAR HGB CONC 33.1 g/dL (33.2-36.2); MEAN CORPUSCULAR VOLUME 95.9 fL (81-97); MEAN PLATELET VOLUME 8.4 fL (7.4-10.4); MONOCYTES # (AUTO) 1.07 x10^3/uL (0.2-0.8); MONOCYTES % (AUTO) 10 % (2-9); NEUTROPHILS # (AUTO) 8.86 x10^3/uL (1.8-6.8); NEUTROPHILS % (AUTO) 81 % (42-75); PLATELET COUNT 290 x10^3/uL (130-400); RED BLOOD COUNT 2.79 x10^6/uL (4.38-5.82); RED CELL DISTRIBUTION WIDTH 13.4 % (9.4-14.8)
[2020-02-16 07:53] LABS: ANION GAP 8 mmol/L (5-15); CALCIUM 8.6 mg/dL (8.5-10.1); CHLORIDE 114 mmol/L (98-107); CREATININE 1.61 mg/dL (0.7-1.3)
[2020-02-16] MEDS: TICAGRELOR 90 MG TABLET PO SCH ×2 (08:41→20:38)
[2020-02-16] MEDS: SENNA/DOCUSATE TABLET PO SCH (08:41)
[2020-02-16] MEDS: ASPIRIN 81 MG TABLET CHEW PO SCH (08:41)
[2020-02-16] MEDS: FAMOTIDINE 20 MG TABLET PO SCH (08:41)
[2020-02-16] MEDS: LISINOPRIL 5 MG TABLET PO SCH (08:42)
[2020-02-16] MEDS: FLUTICASONE NASAL SPRAY 16GM NAS SCH ×2 (08:42→20:39)
[2020-02-16] MEDS: AZITHROMYCIN 500 MG in SODIUM CHLORIDE 0.9% 250 ML IV SCH (08:43)
[2020-02-16] MEDS: CEFTRIAXONE PMX 1GM/50ML 50 ML IV SCH (10:06)
[2020-02-16] MEDS: OXYcodone IR 5MG TABLET PO PRN (10:56)
[2020-02-16 12:46] VITALS: BP 136/77
--- NOTE | 2020-02-16 14:15 | NUR ---
Nursing Activity Sheet 1. up in chair 3x's a day. 2 seated B LE strengthening exercises per green exercise handout. Pt is to perform exercises at least 3x's a day 15-20 reps each: marching, knee extension, pillow adductor squeezes, ankle dorsiflexion/plantarflexion 3. Pt to ambulate with nursing or therapy staff daily Addendum: 02/16/20 at 1522 by TALON TOM PTA Amended: Links added.
[2020-02-16] MEDS: ACETAMINOPHEN 325 MG TABLET PO PRN (16:39)
[2020-02-16 18:41] VITALS: BP 148/80
[2020-02-16] MEDS: ATORVASTATIN 80 MG TABLET PO SCH (20:38)
[2020-02-17 01:02] VITALS: BP 146/78
[2020-02-17 04:39] LABS: BASOPHILS # (AUTO) 0.01 x10^3/uL (0-0.1); BASOPHILS % (AUTO) 0 % (0-1); EOSINOPHILS # (AUTO) 0.22 x10^3/uL (0-0.4); EOSINOPHILS % (AUTO) 2 % (1-7); LYMPHOCYTES % (AUTO) 8 % (22-44); MD NO; MEAN CORPUSCULAR HGB CONC 33.5 g/dL (33.2-36.2); MEAN CORPUSCULAR VOLUME 95.6 fL (81-97); MEAN PLATELET VOLUME 8.5 fL (7.4-10.4); MONOCYTES # (AUTO) 1.02 x10^3/uL (0.2-0.8); MONOCYTES % (AUTO) 10 % (2-9); NEUTROPHILS # (AUTO) 7.87 x10^3/uL (1.8-6.8); NEUTROPHILS % (AUTO) 79 % (42-75); PLATELET COUNT 289 x10^3/uL (130-400); RED BLOOD COUNT 2.74 x10^6/uL (4.38-5.82); RED CELL DISTRIBUTION WIDTH 13.8 % (9.4-14.8)
[2020-02-17 04:45] LABS: ANION GAP 9 mmol/L (5-15); CALCIUM 8.3 mg/dL (8.5-10.1); CHLORIDE 113 mmol/L (98-107); CREATININE 1.47 mg/dL (0.7-1.3)
[2020-02-17] MEDS: ACETAMINOPHEN 325 MG TABLET PO PRN (05:43)
[2020-02-17] MEDS: AZITHROMYCIN 500 MG in SODIUM CHLORIDE 0.9% 250 ML IV SCH (07:36)
[2020-02-17] MEDS: LISINOPRIL 5 MG TABLET PO SCH (07:37)
[2020-02-17] MEDS: FAMOTIDINE 20 MG TABLET PO SCH (07:37)
[2020-02-17] MEDS: INSULIN LISPRO 100 UNITS/ML, PEN SQ-INSULIN SCH ×2 (07:37→11:57)
[2020-02-17] MEDS: FLUTICASONE NASAL SPRAY 16GM NAS SCH (07:37)
[2020-02-17] MEDS: ASPIRIN 81 MG TABLET CHEW PO SCH (07:38)
[2020-02-17] MEDS: CARVEDILOL 3.125 MG TABLET PO SCH ×2 (07:38→08:06)
[2020-02-17] MEDS: TICAGRELOR 90 MG TABLET PO SCH (07:38)
[2020-02-17] MEDS: SENNA/DOCUSATE TABLET PO SCH (07:39)
[2020-02-17 08:25] VITALS: BP 145/76
[2020-02-17] MEDS: CEFTRIAXONE PMX 1GM/50ML 50 ML IV SCH (10:00)
[2020-02-17] MEDS ORDERED: LISI5TAB7 PO (14:12)
[2020-02-17] MEDS ORDERED: AZIT500T PO (14:12)
[2020-02-17] MEDS ORDERED: CARV3.1212 PO (14:12)
[2020-02-17] MEDS ORDERED: CEFD300C37 PO (14:12)
[2020-02-17] MEDS ORDERED: ATOR-2 PO (14:12)
[2020-02-17] MEDS ORDERED: FAMO20TA7 PO (14:12)
[2020-02-17] MEDS ORDERED: TICA90TA PO (14:12)
[2020-02-17] MEDS ORDERED: ASPI81TA45 PO (14:12)
[2020-02-17 14:24] VITALS: BP 135/80
== END 2020-02-17 17:43 | disposition home or self-care (01) | DRG 175 ==
LOC: ED 14:17 → CCU 14:25 → UNDOADMIN 14:25 → EDIP 14:25 → CCU 16:28 → EDIP 16:28 → 5SO 02-13 19:01
PROVIDERS: ADMIT Internal Medicine; ATTEND Hospitalist
PROC: 027034Z Dilation of Coronary Artery, One Artery with Drug-eluting Intraluminal Device, Percutaneous Approach (ICD-10-PCS; principal; 2020-02-11)
PROC: 4A023N7 Measurement of Cardiac Sampling and Pressure, Left Heart, Percutaneous Approach (ICD-10-PCS; 2020-02-11)
PROC: 02723ZZ Dilation of Coronary Artery, Three Arteries, Percutaneous Approach (ICD-10-PCS; 2020-02-11)
PROC: 5A12012 Performance of Cardiac Output, Single, Manual (ICD-10-PCS; 2020-02-11)
PROC: B2111ZZ Fluoroscopy of Multiple Coronary Arteries using Low Osmolar Contrast (ICD-10-PCS; 2020-02-11)
DX: T82.867A Thrombosis due to cardiac prosthetic devices, implants and grafts, initial encounter (principal); I21.19 ST elevation (STEMI) myocardial infarction involving other coronary artery of inferior wall; J96.01 Acute respiratory failure with hypoxia; N17.0 Acute kidney failure with tubular necrosis; I49.01 Ventricular fibrillation; I50.31 Acute diastolic (congestive) heart failure; J18.9 Pneumonia, unspecified organism; G93.41 Metabolic encephalopathy; I13.0 Hypertensive heart and chronic kidney disease with heart failure and stage 1 through stage 4 chronic kidney disease, or unspecified chronic kidney disease; R57.9 Shock, unspecified; D64.9 Anemia, unspecified; I47.2 Ventricular tachycardia; E11.22 Type 2 diabetes mellitus with diabetic chronic kidney disease; E11.40 Type 2 diabetes mellitus with diabetic neuropathy, unspecified; E11.51 Type 2 diabetes mellitus with diabetic peripheral angiopathy without gangrene; E78.5 Hyperlipidemia, unspecified; F32.9 Major depressive disorder, single episode, unspecified; I25.10 Atherosclerotic heart disease of native coronary artery without angina pectoris; I25.5 Ischemic cardiomyopathy; I97.710 Intraoperative cardiac arrest during cardiac surgery; J44.0 Chronic obstructive pulmonary disease with (acute) lower respiratory infection; N18.9 Chronic kidney disease, unspecified; Y83.1 Surgical operation with implant of artificial internal device as the cause of abnormal reaction of the patient, or of later complication, without mention of misadventure at the time of the procedure; Y84.0 Cardiac catheterization as the cause of abnormal reaction of the patient, or of later complication, without mention of misadventure at the time of the procedure; Z72.0 Tobacco use; Z79.84 Long term (current) use of oral hypoglycemic drugs; Z82.49 Family history of ischemic heart disease and other diseases of the circulatory system; Z89.429 Acquired absence of other toe(s), unspecified side; Z91.19 Patient's noncompliance with other medical treatment and regimen; Z95.1 Presence of aortocoronary bypass graft; I46.9 Cardiac arrest, cause unspecified; Z99.11 Dependence on respirator [ventilator] status; Z88.8 Allergy status to other drugs, medicaments and biological substances; Z91.011 Allergy to milk products
CPT/HCPCS: 31500; 36415; 36600; 71045; 80047; 80048; 80053; 82330; 82803; 82947; 82962; 83735; 84132; 84478; 84484; 85025; 85610; 85730; 87070; 87081; 87205; 92920; 92960; 92973; 93005; 93308; 93458; 94002; 94003; 96374; 96375; 99156; 99157; C1769; C1894; G0378; J0171; J0456; J0583; J0696; J1644; J1815; J2250; J2405; J2704; J3010; J3475; J7060; C1725; C1757; C1874; C1887; J0282; J2060; J2270; J2370; J3490; J7030; J7050; Q9967

== ENCOUNTER 2020-02-17 20:26 | Emergency (ER) | payer MEDICAID ==
[~2020-02-17] VITALS: Ht 167.6 cm; Wt 69.0 kg
[~2020-02-17 20:26] MED LIST changes: +AZIT500T PO; +CARV3.1212 PO; +CEFD300C37 PO; +FAMO20TA7 PO; +LISI5TAB7 PO
--- NOTE | 2020-02-17 20:50 | NUR ---
THIS IS A 64 YO BIB EMS W/ C/O LT SIDED RIB PAIN AND ALLEN. PT WAS DC FROM THIS FACILITY TODAY. PT WAS ADMITTED FOR STEMI X2 STENTS. PT REPORTS CPR WAS PERFORMED ON HIM AND NOW HAS CONSTANT RIB PAIN 10/10. PT STATES THAT HE DOES NOT FEEL THAT HE WAS READY TO GO HOME. PT IS RESTING ON GURNEY W/ CALL LIGHT IN REACH AND SIDE RAILS UPX2. FEBRILE, OTHER VS WDL.
[2020-02-17 20:57] LABS: BASOPHILS # (AUTO) 0.03 x10^3/uL (0-0.1); BASOPHILS % (AUTO) 0 % (0-1); EOSINOPHILS # (AUTO) 0.21 x10^3/uL (0-0.4); EOSINOPHILS % (AUTO) 2 % (1-7); LYMPHOCYTES # (AUTO) 0.77 x10^3/uL (1-3.4); LYMPHOCYTES % (AUTO) 7 % (22-44); MD NO; MEAN CORPUSCULAR HEMOGLOBIN 31.5 pg (27.5-34.5); MEAN CORPUSCULAR HGB CONC 33.1 g/dL (33.2-36.2); MEAN CORPUSCULAR VOLUME 95.2 fL (81-97); MEAN PLATELET VOLUME 8.7 fL (7.4-10.4); MONOCYTES % (AUTO) 9 % (2-9); NEUTROPHILS # (AUTO) 8.65 x10^3/uL (1.8-6.8); NEUTROPHILS % (AUTO) 82 % (42-75); PLATELET COUNT 328 x10^3/uL (130-400); RED BLOOD COUNT 2.72 x10^6/uL (4.38-5.82); RED CELL DISTRIBUTION WIDTH 13.9 % (9.4-14.8)
--- NOTE | 2020-02-17 20:58 | NUR ---
HOLD ASPIRIN PER .
[2020-02-17] MEDS ORDERED: ASPIRIN 81 MG TABLET CHEW PO ONE (21:00)
[2020-02-17 21:06] LABS: ALANINE AMINOTRANSFERASE 244 U/L (12-78); ALBUMIN 1.9 g/dL (3.4-5.0); ANION GAP 8 mmol/L (5-15); CALCIUM 8.4 mg/dL (8.5-10.1); CHLORIDE 110 mmol/L (98-107)
[2020-02-17 21:10] LABS: ALKALINE PHOSPHATASE 166 U/L (45-117); BILIRUBIN,TOTAL 0.6 mg/dL (0.2-1.0); TOTAL PROTEIN 5.9 g/dL (6.4-8.2)
[2020-02-17] MEDS ORDERED: ASPIRIN 81 MG TABLET CHEW ONE (21:16)
--- NOTE | 2020-02-17 21:18 | NUR ---
PROVIDER GAVE OKAY TO MEDICATE PT W/ ASPIRIN.
--- NOTE | 2020-02-17 21:21 | NUR ---
PT RESTING ON GURNEY, CONVERSING W/O DIFFICULTY. VS STABLE. NADN. AWAITING RESULTS.
--- NOTE | 2020-02-17 21:31 | NUR ---
ALL TESTS RESULTED. PT IS UP FOR RECHECK AT THIS TIME.
--- NOTE | 2020-02-17 21:48 | NUR ---
PT UPDATED ON POC FOR CT.
--- NOTE | 2020-02-17 22:05 | NUR ---
PT TO RAD.
[2020-02-17 22:16] VITALS: BP 152/68
--- NOTE | 2020-02-17 22:18 | NUR ---
PT BACK FROM CT, VS STABLE. PT RESTING ON GURVidSchool, SINGING TO STAFF. AWAITING CT RESULTS.
--- NOTE | 2020-02-17 22:47 | NUR ---
DR.VAN DRAKE IN ROOM FOR RECHECK.
--- NOTE | 2020-02-17 23:20 | NUR ---
Patient given discharge instructions and they have confirmed that they understand the instructions. Patient ambulatory with steady gait.
== END 2020-02-17 23:21 | disposition home or self-care (01) ==
LOC: ED 21:03
DX: I21.3 ST elevation (STEMI) myocardial infarction of unspecified site (principal); J18.9 Pneumonia, unspecified organism; R07.89 Other chest pain; F41.9 Anxiety disorder, unspecified; B34.9 Viral infection, unspecified; F17.210 Nicotine dependence, cigarettes, uncomplicated; I10 Essential (primary) hypertension; E11.9 Type 2 diabetes mellitus without complications; E78.5 Hyperlipidemia, unspecified; I25.10 Atherosclerotic heart disease of native coronary artery without angina pectoris; I25.2 Old myocardial infarction; Z98.61 Coronary angioplasty status
CPT/HCPCS: 36415; 71045; 71250; 80053; 83880; 84484; 85025; 93005; 99285; 99406; U0001

== ENCOUNTER 2020-02-21 03:59 | Emergency (ER) | payer MEDICAID ==
--- NOTE | 2020-02-21 04:01 | NUR ---
Code cardiac called at 0354 after [facility] radio report. (No pre-alert called by dispatch). labeling specialist called in by code phone at this time. Cards paged at [phone]. Dr. Thomas called back at [phone]. All manager laboratory in route at 0358 per code phone. Nasima blue called at [phone].
--- NOTE | 2020-02-21 04:24 | NUR ---
LVM for family listed: Bobbi
[2020-02-21] MEDS ORDERED: BIVALIRUDIN 250 MG ONE (04:25)
[2020-02-21] MEDS ORDERED: MIDAZOLAM 1 MG/ML, 5ML ONE (04:25)
[2020-02-21] MEDS ORDERED: FENTANYL PF 250 MCG/5ML ONE (04:25)
[2020-02-21] MEDS ORDERED: VERAPAMIL 2.5 MG/ML, 2ML ONE (04:25)
[2020-02-21] MEDS ORDERED: HEPARIN 1,000 UNITS/ML, 10ML ONE (04:26)
[2020-02-21] MEDS ORDERED: LIDOCAINE 1%, 20ML ONE (04:26)
[2020-02-21] MEDS ORDERED: EPINEPHRINE SYRINGE 0.1 MG/ML, 10ML ONE ×2 (04:47→08:00)
[2020-02-21] MEDS ORDERED: CALCIUM CHLORIDE 10%, 10ML SYR ONE (04:48)
[2020-02-21] MEDS ORDERED: SODIUM BICARB 8.4%, 50ML SYRINGE ONE (04:48)
[2020-02-21] MEDS ORDERED: MAGNESIUM SULFATE 1 GM/2 ML ONE (04:48)
--- NOTE | 2020-02-21 04:59 | NUR ---
LATE ENTRY DUE TO PATIENT CARE: PT BROUGHT IN BY [facility] FROM HOME WITH COMPLAINTS OF CHEST PAIN, JAW AND NECK PAIN X 1 HOUR. PT WAS ADMITTED FOR A STEMI ON 02/11/2020 AND RECEIVED STENTS. HISTORY OF CAD, HTN, DIABETES AND HYPERLIPIDEMIA. EMS EKG SHOWED A STEMI, EMS WAS UNABLE TO ESTABLISH IV ON PT, SYSTOLIC BP WAS 60. PT ALERT AND ORIENTED UPON ARRIVAL, C/O CHEST PAIN. SKIN EXTREMELY PALE, COOL DIAPHORETIC, MOTTLING NOTED TO HIS LOWER EXTREMITIES. EKG OBTAINED, STEMI CONFIRMED. IVS ESTABLISHED X 1, FLUIDS STARTED, PT BEGAN TO LOSE CONSCIOUSNESS AND HAVE RESPIRATORY DISTRESS. ROCURONIUM AND ETOMIDATE WERE ADMINISTERED AND PT WAS INTUBATED WITHOUT DIFFICULTY. TUBE PLACEMENT CONFIRMED AND SESCURE. PT SUBSEQUENTLY WENT INTO CARDIAC ARREST. COMPRESSIONS STARTED, CODE WORKED PER ACLS GUIDELINES WITH DR. DE PAZ AT BEDSIDE. CODE CALLED AND TIME OF 0430.
[2020-02-21] MEDS ORDERED: CODE BLUE RESPONSE XX ONE (05:00)
--- NOTE | 2020-02-21 05:16 | NUR ---
late entry: called knitted cloth examiner: esther doran case @[id number] called donor network : Reema accepted for tissue donation @[id number]
[2020-02-21] MEDS ORDERED: ROCURONIUM 10 MG/ML,10ML ONE (08:00)
[2020-02-21] MEDS ORDERED: ETOMIDATE 20 MG/10 ML ONE (08:00)
== END 2020-02-21 06:42 | disposition expired ==
LOC: ED 04:15
DX: J96.00 Acute respiratory failure, unspecified whether with hypoxia or hypercapnia (principal); R57.0 Cardiogenic shock; I21.3 ST elevation (STEMI) myocardial infarction of unspecified site; I45.10 Unspecified right bundle-branch block; I48.91 Unspecified atrial fibrillation; R41.82 Altered mental status, unspecified; I25.10 Atherosclerotic heart disease of native coronary artery without angina pectoris; E78.5 Hyperlipidemia, unspecified; I25.2 Old myocardial infarction; I11.0 Hypertensive heart disease with heart failure; I50.9 Heart failure, unspecified; E78.00 Pure hypercholesterolemia, unspecified; Z95.0 Presence of cardiac pacemaker; Z87.891 Personal history of nicotine dependence
CPT/HCPCS: 31500; 80047; 92950; 93005; 99291; J3475; J0583; J1644; J2250; J3010